=== PATIENT | male | born 1950 | race Caucasian/White ===

== ENCOUNTER 2023-04-14 06:12 | Day surgery (SDC) | payer MEDICARE, OTHER, SELFPAY ==
[2023-04-14 06:25] VITALS: BP 137/74
[2023-04-14 06:30] VITALS: BMI 33.1
[2023-04-14 06:39] VITALS: BP 137/74
[2023-04-14 07:02] LABS: Glucose - Point of Care 130 mg/dl (70-99)
[2023-04-14 09:05] LABS: ACT-LR - POC 342 Seconds (116-155)
[2023-04-14 09:37] LABS: ACT-LR - POC 211 Seconds (116-155)
[2023-04-14 09:48] LABS: ACT-LR - POC 195 Seconds (116-155)
[2023-04-14 10:29] VITALS: BP 145/99
[2023-04-14 11:53] LABS: Glucose - Point of Care 140 mg/dl (70-99)
--- NOTE | 2023-04-14 12:22 | ITS.CL.ANGIO ---
Licensed Final Expense Agents - Angioplasty
Angioplasty
Procedure Report:
PERIPHERAL ARTERIAL CATHETERIZATION
Date of Procedure: April 14, 2023
Procedures performed:
1: Percutaneous intervention of the left subclavian artery with shockwave lithotripsy angioplasty followed by placement of a 8 x 29 mm Viabahn VBX balloon expandable bioprosthesis postdilated with a 10 mm diameter balloon
Primary Care Physician: Dr. Krishna Major
Referring Physician: Myself
INDICATION: The patient is a 72-year-old man with a past medical history significant for coronary artery disease status post CABG and bioprosthetic aortic valve replacement at [facility] in 2018, hypertension, prior lacunar infarcts in the
right frontal lobe, hyperlipidemia, ibd-uqtzvcd-vlljwvezj diabetes mellitus, and GERD who presents with progressive angina.� He initially reported 3 to 4 weeks of progressive exertional chest pain which resolved with rest.� On more direct
questioning he thinks he has had some degree of symptoms for a couple months that have become more noticeable over the last few weeks.� He went to the [facility] emergency room and ruled in for a very low level non-STEMI at the end of
January.� Urgent cath was done at that time which showed a diagonal branch acute coronary syndrome which was successfully treated with drug-eluting stenting. Cath at that time showed a bulky calcific critical stenosis of the left subclavian
jeopardizing the only patent DUGGAN graft to the LAD. The patient has continued to experience exertional angina at relatively low level. He was seen in consultation with vascular surgeon Dr. Carvajal and consideration for possible carotid to subclavian
bypass was entertained given the calcific nature of the disease. After long conversation with he and his of the pros and cons of each technique, he is elected to proceed today with an attempt at endovascular intervention of the severe
subclavian stenosis contributing to crescendo angina jeopardizing the DUGGAN graft.
HEMODYNAMIC FINDINGS (mmHg):
Ao(s/d,m): 158/66, 104
ANGIOGRAPHIC FINDINGS:
1: Selective angiography of the left subclavian was performed in QATARI and CARVAJAL projections.� This revealed a bulky eccentric calcified plaque in the ostium and proximal portion of the large caliber subclavian.� A pullback gradient using a 4 Bahraini JR4
catheter revealed a 60 mm peak to peak gradient was noted on the prior diagnostic procedure.
PROCEDURE DETAILS: The patient was pretreated with aspirin and Plavix. Using ultrasound guidance a 8 Bahraini sheath was placed in the right common femoral artery. A 8 Bahraini 90 cm Shuttle Sheath was advanced over a J-wire to the aortic arch.
Unfractionated heparin was given. A 5 Bahraini JR4 diagnostic catheter was used to facilitate delivery of a V18 wire through the subtotal occlusion and into the left subclavian. Due to difficulty advancing the V18 wire, I elected to advance a BMW
coronary wire also across the occlusion and predilated the stenosis with a 3.0 followed by a 4.0 balloon. I was able to use a 0.018 inch compatible 4.0 balloon to exchange the coronary wire for the initial V18 wire and get better distal support.
Next, a 9 x 30 mm Shockwave lithotripsy balloon was advanced to the lesion. Low-pressure inflation at 1.5-2 atmospheres resulted in the patient reporting some chest discomfort. I inflated the balloon on 6 separate occasions and delivered 30 pulses
of intravascular lithotripsy a total of 6 times. This is a total of 180 pulses delivered. This resulted in complete profiling of the 9 mm balloon at only 2 montrell. I did not feel comfortable going to a higher pressure given his symptoms and felt
this balloon lithotripsy result was more than adequate. Next, a 8 x 29 mm Viabahn covered stent graft was deployed at the lesion at 10 montrell. The stent graft balloon was used to flare the proximal ostial area at 12 montrell. Next a 10 x 2 cm Advance
balloon was used to post dilate the distal stent graft at 2 montrell low-pressure and 6 montrell in the mid and ostial portion with compete profiling of the balloon. Follow-up angiography in QATARI and CARVAJAL projections revealed an outstanding angiographic result
with perfect stent placement at the ostium.
FINAL RESULT: 0% in-stent residual stenosis with an excellent angiographic result and normal flow in all distal vessels.
Fluoroscopy Time (min): 30
Radiation Dose (mGy): 246
DAP (Gy.cm2): 36
Closure device: 8 Bahraini Angio-Seal right common femoral artery
Complications: None
ASSESSMENT:
1: Successful percutaneous intervention of left subclavian artery with placement of a covered stent graft as described above.
CONCLUSIONS and RECOMMENDATIONS:
1: Routine post peripheral intervention monitoring and medical therapy. Continue current DAPT with aspirin and Plavix as well as statin, Zetia, and metoprolol with recent non-STEMI.
2: Once his groin is healed he will be enrolled in cardiac rehab and have close clinical follow-up with myself.
Guillermo Ramon M.D.
Copy to: Dr. Krishna Major
--- NOTE | 2023-04-14 12:29 | CM ---
Reviewed chart. Met with Mr. Nieto to review discharge plans. He states prior to admission he resides with his spouse in a one story home with one step to enter. He states prior to admission he was independent with ambulation and adls. He
states he does not have any DME in the home. He states he has a prescription plan and uses [facility]. The discharge plan is to return home with his spouse when medically stable.
[2023-04-14 13:12] VITALS: BP 124/62
[2023-04-14] MEDS: LIPITOR 80 MG PO (17:09)
[2023-04-14 17:11] LABS: Glucose - Point of Care 96 mg/dl (70-99)
[2023-04-14] MEDS: LOPRESSOR 12.5 MG PO (20:30)
[2023-04-14 20:38] VITALS: BP 136/69
[2023-04-14 21:45] LABS: Glucose - Point of Care 154 mg/dl (70-99)
[2023-04-14 23:11] VITALS: BP 94/51
[2023-04-15 01:04] VITALS: BP 120/65
[2023-04-15 03:50] VITALS: BP 138/75
[2023-04-15 04:16] LABS: Hemoglobin 13.6 g/dL (13.0-18.0); Mean Corpuscular Hgb 32.2 pg (27.0-31.0); Mean Corpuscular Volume 94.8 fL (80.0-94.0); Mean Platelet Volume 9.5 fL (7.4-10.4); Platelet Count 149 10^3/uL (130-400); Red Blood Cell Count 4.22 10^6/uL (4.70-6.10); Red Cell Dist. Width 13.2 % (11.5-14.5); White Blood Cell Count 6.7 10^3/uL (4.8-10.8)
[2023-04-15 04:36] LABS: Blood Urea Nitrogen 18 mg/dl (9-20); Calcium 9.1 mg/dl (8.4-10.2); Carbon Dioxide 25 mmol/L (22-30); Chloride 104 mmol/L (98-107); Estimated Creatinine Clearance 79 ml/min; Glucose 137 mg/dl (70-99); HDL Cholesterol 41 mg/dl; LDL Cholesterol, Calculated 25 mg/dl; Potassium 4.3 mmol/L (3.5-5.1); Sodium 137 mmol/L (135-145); Total Cholesterol 105 mg/dl (50-199); Triglyceride 199 mg/dl (10-149); Very Low Density Lipoprotein 39 mg/dl (0-30); eGFR > 60.00
[2023-04-15 07:04] VITALS: BP 128/63
[2023-04-15 07:45] LABS: Glucose - Point of Care 149 mg/dl (70-99)
--- NOTE | 2023-04-15 07:57 | W.PN.CARDCBS ---
Today's Communication / Plan
-
post lithotripsy angioplasty with stent to left subclavian arter
DAPT
stable for d/c home today
Impression / Plan
-
Primary Care Physician: Dr. Krishna Major
Referring Physician: Dr. Chico Ramon
IMPRESSION:
Critical Left Subclavian stenosis, incidental finding on cath 02/11/23
post Lithotripsy angioplasty with stent placement to left subclavian artery 04/14/23
NSTEMI with Diagonal PCI, 02/11/23
CAD, prior CABG x3 DUGGAN-LAD, VG-OM-PDA (06/14/2017)
, s/p AVR 25mm bovine (06/14/2017)
HTN
HLD
MATILDE
NIDDM
GERD
Fatty liver
TIA/CVA lacunar
Alcohol use disorder
Former smoker
h/o TKR
04/14/23 Procedure: Percutaneous intervention of the left subclavian artery with shockwave lithotripsy angioplasty followed by placement of a 8 x 29 mm Viabahn VBX balloon expandable bioprosthesis postdilated with a 10 mm diameter balloon
[facility] 02/11- Successful Diagoanl branch PCI w/YANIRA
critical ostial/proximal calcific eccentric plaque in left SC w/60mm peak to peak gradient across the lesion
interval occlusion of SVG-distal OM and RPDA, supplied by collaterals from prox LAD septal cascade.
Plan:
post LCA stent, feels good
no cp, groin stable
continue DAPT ASA/Plavix
HTN - continue metoprolol tartrate 12.5mg bid
Hyperlipidemia LDL 25 continue atorvastatin 80mg, and ezetimibe 10mg
DM2 - continue Jardiance 25mg, A1c pending previously 6.4 01/2023
Activity restrictions reviewed
groin check on Wednesday
f/u Dr. Ramon in 2-4 weeks
home today
Progress Note - Boom Tender
Subjective
Date of Service: April 15, 2023
no cp, sob
Objective
Labs:
04/15/23 03:54
04/15/23 03:54
Labs
Hgb 13.6 g/dL (13.0-18.0) 04/15/23 03:54
Hct 40.0 % (39.0-52.0) 04/15/23 03:54
Plt Count 149 10^3/uL (130-400) 04/15/23 03:54
Sodium 137 mmol/L (135-145) 04/15/23 03:54
Potassium 4.3 mmol/L (3.5-5.1) 04/15/23 03:54
BUN 18 mg/dl (9-20) 04/15/23 03:54
Creatinine 0.9 mg/dL (0.7-1.3) 04/15/23 03:54
Glucose 137 mg/dl (70-99) H 04/15/23 03:54
Vital Signs and I&O:
Vital Signs
Temp Pulse Resp BP Pulse Ox
97.9 F 80 20 138/75 93
04/15/23 03:00 04/15/23 03:50 04/15/23 03:00 04/15/23 03:50 04/15/23 03:00
Vital Signs
Temp Pulse Resp BP Pulse Ox
97.9 F 80 20 138/75 93
04/15/23 03:00 04/15/23 03:50 04/15/23 03:00 04/15/23 03:50 04/15/23 03:00
Physical Exam
Physical Exam
NAD, AOx3
S1, S2, RRR
CTAB, non labored
SNTND bsx4
R fem site c/d/i no HT, soft
[2023-04-15] MEDS: LOPRESSOR 12.5 MG PO (08:26)
[2023-04-15] MEDS: ZETIA 10 MG PO (08:27)
[2023-04-15] MEDS: JARDIANCE 25 MG PO (08:27)
[2023-04-15] MEDS: ASPIR LOW (ENTERIC COATED) 81 MG PO (08:27)
[2023-04-15] MEDS: PROTONIX 40 MG PO (08:27)
[2023-04-15] MEDS: PLAVIX 75 MG PO (08:29)
--- NOTE | 2023-04-15 10:00 | PTCARENOTE ---
Assumed care of pt from night RN. Pt received awake and alert, Ox3. VSS, CM shows NSR 70's, POX95% on RA. Right groin dsg remains CDI, site soft and non tender, good pulses throughout extremity. Pt denies any pain or discomfort at this time.
Will continue to monitor closely.
[2023-04-15 11:09] VITALS: BP 91/66
[2023-04-15 11:12] VITALS: BP 120/71
[2023-04-15 11:22] LABS: Glucose - Point of Care 102 mg/dl (70-99)
--- NOTE | 2023-04-15 12:39 | W.PN.CARDCBS ---
Today's Communication / Plan
-
Doing well status post left subclavian stent. Continue aspirin and Plavix.
Okay for discharge and follow-up with Dr. Ramon.
Impression / Plan
-
Primary Care Physician: Dr. Krishna Major
Referring Physician: Dr. Chico Ramon
IMPRESSION:
Critical Left Subclavian stenosis, incidental finding on cath 02/11/23
post Lithotripsy angioplasty with stent placement to left subclavian artery 04/14/23
NSTEMI with Diagonal PCI, 02/11/23
CAD, prior CABG x3 DUGGAN-LAD, VG-OM-PDA (06/14/2017)
, s/p AVR 25mm bovine (06/14/2017)
HTN
HLD
MATILDE
NIDDM
GERD
Fatty liver
TIA/CVA lacunar
Alcohol use disorder
Former smoker
h/o TKR
04/14/23 Procedure: Percutaneous intervention of the left subclavian artery with shockwave lithotripsy angioplasty followed by placement of a 8 x 29 mm Viabahn VBX balloon expandable bioprosthesis postdilated with a 10 mm diameter balloon
[facility] 02/11- Successful Diagoanl branch PCI w/YANIRA
critical ostial/proximal calcific eccentric plaque in left SC w/60mm peak to peak gradient across the lesion
interval occlusion of SVG-distal OM and RPDA, supplied by collaterals from prox LAD septal cascade.
Plan:
post LCA stent, feels good
no cp, groin stable
continue DAPT ASA/Plavix
HTN - continue metoprolol tartrate 12.5mg bid
Hyperlipidemia LDL 25 continue atorvastatin 80mg, and ezetimibe 10mg
DM2 - continue Jardiance 25mg, A1c pending previously 6.4 01/2023
Activity restrictions reviewed
groin stable. Okay for discharge.
Progress Note - University Archivist
Subjective
Date of Service: April 15, 2023
Feels well with no chest pains or shortness of breath.
Objective
Labs:
04/15/23 03:54
04/15/23 03:54
Labs
Hgb 13.6 g/dL (13.0-18.0) 04/15/23 03:54
Hct 40.0 % (39.0-52.0) 04/15/23 03:54
Plt Count 149 10^3/uL (130-400) 04/15/23 03:54
Sodium 137 mmol/L (135-145) 04/15/23 03:54
Potassium 4.3 mmol/L (3.5-5.1) 04/15/23 03:54
BUN 18 mg/dl (9-20) 04/15/23 03:54
Creatinine 0.9 mg/dL (0.7-1.3) 04/15/23 03:54
Glucose 137 mg/dl (70-99) H 04/15/23 03:54
Vital Signs and I&O:
Vital Signs
Temp Pulse Resp BP Pulse Ox
98.2 F 71 16 120/71 95
04/15/23 07:00 04/15/23 11:12 04/15/23 07:00 04/15/23 11:12 04/15/23 09:51
Vital Signs
Temp Pulse Resp BP Pulse Ox
98.2 F 71 16 120/71 95
04/15/23 07:00 04/15/23 11:12 04/15/23 07:00 04/15/23 11:12 04/15/23 09:51
Physical Exam
Physical Exam
GEN: No distress, awake, Ox3
HEENT: supple, anicteric, mmm
LUNGS: CTA, no wheezes/rales
CV: Reg, S1/S2, 1/6 syst LSB, no gallop
ABD: soft, BS+, NT/ND
EXT: R groin stable, no hematoma
NEURO: Gross non-focal
SKIN: No rash
--- NOTE | 2023-04-15 12:53 | PTCARENOTE ---
All D/C info reviewed with pt, all questions answered. Pt D/C'd home with spouse.
--- NOTE | 2023-04-15 14:01 | W.DS.TRANS ---
DC Summary - Natural Remedy Consultant
-
Discharge Instructions:
Discharge Diagnosis/Procedures Atherectomy, Angioplasty and stent to Left
Subclavian artery
Diet Low Cholesterol,Diabetic, Carb Controlled
Driving Restrictions No driving for 24 hours
Instructions:
Stand-Alone Forms: DC Instructions- Cath/EP Lab
Changes to Home Medications: No
Discharge Medications:
DC Medications w/original date entered in [facility]
aspirin 81 mg tablet,delayed release 81 mg PO DAILY Blood Clot Prevention/Tx 05/05/17
blood sugar diagnostic (Blood Glucose Test strips) #150 strips 06/18/17
lancets 30 gauge #200 ea 06/18/17
atorvastatin 80 mg tablet 80 mg PO QPM High Cholesterol 02/11/23
empagliflozin 25 mg tablet (Jardiance) 25 mg PO DAILY Diabetes 02/11/23
ezetimibe 10 mg tablet 10 mg PO DAILY High Cholesterol 02/11/23
metoprolol tartrate 25 mg tablet 12.5 mg PO BID Blood Pressure 02/11/23
nitroglycerin 0.4 mg sublingual tablet 0.4 mg sublingual ONCE CHEST PAIN 02/11/23
clopidogrel 75 mg tablet 75 mg PO DAILY #90 tabs 02/12/23
pantoprazole 40 mg tablet,delayed release 40 mg PO DAILY #90 tabs 02/12/23
Home Medication Changes
Pending Results: No
== END 2023-04-15 12:54 | disposition home or self-care (01) ==
LOC: CATH 06:12
PROVIDERS: Nurse Practitioner; ATTENDING PHYSICIAN Internal Medicine Interventional Cardiology; FAMILY PHYSICIAN Family Medicine
DX: I77.1 Stricture of artery (principal); Z86.73 Personal history of transient ischemic attack (TIA), and cerebral infarction without residual deficits; I25.2 Old myocardial infarction; E78.5 Hyperlipidemia, unspecified; K21.9 Gastro-esophageal reflux disease without esophagitis; I10 Essential (primary) hypertension; Z95.3 Presence of xenogenic heart valve; I25.110 Atherosclerotic heart disease of native coronary artery with unstable angina pectoris; Z95.1 Presence of aortocoronary bypass graft; Z79.02 Long term (current) use of antithrombotics/antiplatelets; E11.9 Type 2 diabetes mellitus without complications; Z79.84 Long term (current) use of oral hypoglycemic drugs; Z95.5 Presence of coronary angioplasty implant and graft; K76.0 Fatty (change of) liver, not elsewhere classified; Z87.891 Personal history of nicotine dependence; Z87.898 Personal history of other specified conditions; F10.20 Alcohol dependence, uncomplicated; Z96.659 Presence of unspecified artificial knee joint; I65.29 Occlusion and stenosis of unspecified carotid artery; I35.0 Nonrheumatic aortic (valve) stenosis; Z79.82 Long term (current) use of aspirin; Z79.4 Long term (current) use of insulin
CPT/HCPCS: 37236; 36215; C1725; C1769; C1894; 80048; 80061; 82962; 83036; 85027; 85347; 93005; C1760; C1874; C9765; Q9967

== ENCOUNTER → 2024-10-05 06:33 | Outpatient (REF) | payer MEDICARE, OTHER, SELFPAY | LOC: RAD 06:33 | PROVIDERS: ATTENDING PHYSICIAN Surgery Vascular Surgery; FAMILY PHYSICIAN Family Medicine | DX: I73.9 Peripheral vascular disease, unspecified (principal); I65.21 Occlusion and stenosis of right carotid artery | CPT/HCPCS: 71275; 93880; 93923; 93925; Q9967 ==

== ENCOUNTER 2024-10-26 06:17 | Inpatient (IN) | payer MEDICARE, OTHER, SELFPAY ==
[2024-10-20 10:06] LABS: Hematocrit 41.9 % (39.0-52.0); Hemoglobin 12.9 g/dL (13.0-18.0); Mean Corp Hgb Conc. 30.8 g/dL (33.0-37.0); Mean Corpuscular Volume 79.1 fL (80.0-94.0); Nucleated Red Blood Cells % 0 % (-); Platelet Count 204 10^3/uL (130-400); Red Cell Dist. Width 15.9 % (11.5-14.5)
[2024-10-20 10:17] VITALS: BMI 34.4
[2024-10-20 10:24] LABS: INR 0.98; PT 13.3 Sec (11.4-14.6)
[2024-10-20 10:25] LABS: APTT 28.6 Sec (23.4-35.0)
[2024-10-20 10:47] LABS: Blood Urea Nitrogen 13 mg/dl (9-20); Calcium 9.3 mg/dl (8.4-10.2); Carbon Dioxide 28 mmol/L (22-30); Chloride 103 mmol/L (98-107); Estimated Creatinine Clearance 60 ml/min; Glucose 180 mg/dl (70-99); Potassium 4.7 mmol/L (3.5-5.1); Sodium 138 mmol/L (135-145); eGFR > 60.00
[2024-10-26] VITALS (16 sets, daily range): BP systolic 94–157; BP diastolic 56–94; BMI 34.3
[2024-10-26] MEDS: NSS 500 IV (07:05)
[2024-10-26] MEDS: BACTROBAN NASAL 1 GRAM NASAL (07:09)
[2024-10-26] MEDS: PERIDEX 0.12% ORAL RINSE 15 ML PO (07:10)
--- NOTE | 2024-10-26 07:10 | W.SUR.PREOP ---
Pre-Operative Surgical Note
-
I have examined this patient prior to the performance of the scheduled procedure.
The patient's condition is unchanged from the time of the current History and
Physical and the patient is able to undergo the scheduled procedure.
[2024-10-26 07:13] LABS: Glucose - Point of Care 121 mg/dl (70-99)
[2024-10-26 09:39] LABS: Glucose - Point of Care 177 mg/dl (70-99)
--- NOTE | 2024-10-26 10:27 | W.SUR.POST ---
Surgical Immediate Post Op
Note
Pre Op Diagnosis: PAD
Post Op Diagnosis: PAD
Procedure Performed: Right axillary bifemoral bypass with ringed Propaten graft
Primary Surgeon: Darren
Secondary Surgeons: Claude ALBRECHT
Anesthesia: General
Estimated Blood Loss: 75
Fluids: See anesthesia flow sheet
Drains/Shunts: none
Specimens/Cultures: none
Doppler/Duplex/Angio (Y/N): Y
Complications: none
Operative Findings: PT doppler on the right, and DP doppler on the left
--- NOTE | 2024-10-26 12:01 | CON.INTV ---
Consultation
Consultation Request
Date/Time Consultation Requested: 10/26/2024-1 PM
Date/Time Consultation Performed: 10/26/2024-1:15 PM
Requesting Provider: Vascular surgery
Performing Provider: Dr. Lugo
Reason for Consultation: Postop critical care management
Medical History
-
Chief Complaint: PAD
History of Present Illness:
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
Past Medical History
Past Medical History: None (Hypertension. Hyperlipidemia. CAD/stent/CABG/AVR 2018. Aortic stenosis. Obesity. Diabetes. Fatty liver. Chronic back pain. Allergies. GERD. History of shingles. Cataract. Bilateral knee replacement.
Appendectomy.)
Social History
Tobacco: Former Smoker (3 to 4 packs/day started 1965 quit 1986)
Personal:
Living: With Family
Occupational Exposures: No known asbestos exposure
Environmental Exposures: No known tuberculosis exposure
Family History
Family History: Reviewed & Not Pertinent (Father-CHF)
Allergies / Home Medications
Allergies
Allergy/AdvReac Type Severity Reaction Status Date / Time
codeine Allergy Nausea / Verified 10/26/24 07:21
Vomiting
grapefruit Allergy lips turn Verified 10/26/24 07:21
red,
swelling,
throat
irritation
Home Medications
�Medication �Instructions �Recorded �Confirmed �Last Taken �Type
aspirin 81 mg tablet,delayed 81 mg PO DAILY Blood Clot 05/05/17 10/26/24 10/26/24 04:00 History
release Prevention/Tx
blood sugar diagnostic (Blood #150 strips 06/18/17 10/26/24 Unknown Rx
Glucose Test strips)
lancets 30 gauge #200 ea 06/18/17 10/26/24 Unknown Rx
atorvastatin 80 mg tablet 80 mg PO QPM High Cholesterol 02/11/23 10/26/24 10/25/24 18:00 History
empagliflozin 25 mg tablet 25 mg PO DAILY Diabetes 02/11/23 10/26/24 10/23/24 09:00 History
(Jardiance)
metoprolol tartrate 25 mg tablet 12.5 mg PO BID Blood Pressure 02/11/23 10/26/24 10/26/24 04:00 History
nitroglycerin 0.4 mg sublingual 0.4 mg sublingual ONCE CHEST PAIN 02/11/23 10/26/24 Unknown History
tablet
pantoprazole 40 mg tablet,delayed 40 mg PO DAILY #90 tabs 02/12/23 10/26/24 10/25/24 18:00 Rx
release
cilostazol 50 mg tablet 50 mg PO BID 10/17/24 10/26/24 10/26/24 04:00 History
ibuprofen 200 mg tablet (Advil) 200 mg PO Q6H PRN pain 10/17/24 10/26/24 3 Months Ago History
~07/26/24
ezetimibe 10 mg tablet 10 mg PO DAILY 10/26/24 10/26/24 10/25/24 18:00 History
Review of Systems
-
Unable to Obtain full review of systems at this time due to: Other ( per HPI)
Vitals / Labs / Diagnostic Testing
Vital Signs
Temp Pulse Resp BP Pulse Ox
98.3 F 73 20 156/80 98
10/26/24 06:26 10/26/24 07:15 10/26/24 07:15 10/26/24 07:10 10/26/24 07:15
Diagnostic Testing:
Physical Exam
-
Exam:
Well-nourished and well-developed in no apparent distress
HEENT-atraumatic, normocephalic
Neck-supple, no JVD, no bruit
Heart-regular rate and rhythm-no murmurs, rubs or gallops
Chest-clear to auscultation, no wheezes, crackles
Back-no tenderness
Abdomen-soft, nontender, nondistended, no hepatosplenomegaly
Extremities-no cyanosis, clubbing, edema and good peripheral pulses
Integument-intact, no rashes, lesions or ecchymosis
Neurology-alert and oriented, nonfocal motor and sensory exam
Assessment
-
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
Peripheral artery disease
Status post right axillary aortobifem bypass with ringed propatent graft-Dr. Banks-10/26/2024
Hyperglycemia
Conditions present prior to admission:
Hypertension.
Hyperlipidemia.
CAD/stent/CABG/AVR 2017.
Aortic stenosis.
Obesity-BMI 34
Diabetes.
Fatty liver.
Chronic back pain.
Allergies.
GERD.
History of shingles.
Cataract. Bilateral knee replacement. Appendectomy.
Plan
Postoperative surgical intensive care unit monitoring
Supplemental oxygen as needed
Incentive spirometry
Aspiration precautions
Neuro and vascular checks per protocol
Monitor blood pressure/perfusion pressures and pulses closely
Vascular surgery following-correspondence and operative notes reviewed
DVT prophylaxis
Early nutrition
Early mobilization
Consider outpatient sleep apnea workup-has some snoring when sleeping on his back and no significant daytime somnolence
Critical care statement: A total of 55 minutes of critical care time was provided for this patient today. This includes management of unstable vital signs, evaluation of the patient at bedside, reviewing the patient's pertinent medical records
including radiographs, microbiology, laboratory evaluations, and discussion with primary team, consultants, pharmacy, nutrition, physical therapy, case management, charge nurse, critical care nursing, and respiratory therapy.
Diagnostic data:
Chest x-ray 06/18/17-small left pleural effusion
Chest x-ray 10/20/2024-NAD
CT angiogram 10/05/2024-stent within the left subclavian artery without significant stenosis, severe coronary artery calcifications no pulmonary emboli, lungs are clear without evidence of emphysema pneumothorax, pleural effusions
Cardiac catheterization 04/14/2023-successful percutaneous intervention of left subclavian artery with placement of covered stent graft
Data Reviewed
-
EKG: Report reviewed by me
Radiology: Report reviewed by me
CT Scan: Report reviewed by me
Medical Tests (Nuc Med, Echo etc): Report reviewed by me
Labs: Labs reviewed by me
Old Records: Reviewed
Critical Care Time (in minutes): 55
[2024-10-26 12:21] LABS: Glucose - Point of Care 181 mg/dl (70-99)
[2024-10-26 12:34] LABS: Glucose - Point of Care 214 mg/dl (70-99)
[2024-10-26] MEDS: DILAUDID 0.5 MG IV (12:39)
[2024-10-26] MEDS: NOVOLOG vial 1 UNITS SC (12:41)
[2024-10-26 12:52] LABS: Hematocrit 36.0 % (39.0-52.0); Hemoglobin 11.0 g/dL (13.0-18.0); Mean Corp Hgb Conc. 30.6 g/dL (33.0-37.0); Mean Corpuscular Volume 78.8 fL (80.0-94.0); Platelet Count 163 10^3/uL (130-400); Red Cell Dist. Width 15.8 % (11.5-14.5)
[2024-10-26 12:53] LABS: APTT 30.0 Sec (23.4-35.0); Blood Urea Nitrogen 10 mg/dl (9-20); Calcium 7.9 mg/dl (8.4-10.2); Carbon Dioxide 26 mmol/L (22-30); Chloride 106 mmol/L (98-107); Estimated Creatinine Clearance 80 ml/min; Glucose 217 mg/dl (70-99); INR 1.05; PT 14.2 Sec (11.4-14.6); Potassium 4.4 mmol/L (3.5-5.1); Sodium 136 mmol/L (135-145); eGFR > 60.00
[2024-10-26] MEDS: DILAUDID 0.25 MG IV (12:54)
--- NOTE | 2024-10-26 13:09 | OR.RPT ---
Operative Report
Operative Report
PROCEDURE DATE: 10/26/2024
Preoperative diagnosis: Debilitating bilateral lower extremity claudication with multilevel severe peripheral arterial disease including severe aorta/iliac artery disease.
Postoperative diagnosis: Same
Procedure: Right axillary to bifemoral artery bypass with Sayner Propaten 8 mm ringed axillary bifemoral graft.
Surgeon: Darren
Farm Specialist: HOOD Arce, required for all aspects of procedure including assistance with traction/countertraction, following a suture line, assistance with closure.
Complications: None
Anesthesia: General
Indications for procedure:
Debilitating claudication. He felt very limited in terms of his ability to exercise or be active at all. I had recommended strongly exercise therapy due to his severe multilevel disease. However he wished for something more to be done as he felt
quite dejected and unable to perform routine activities. Given his cardiac risk factors, and given visceral aortic bulky plaque, we discussed extensively revascularization strategies. We decided on axillary bifemoral bypass. He understood
inferior patency relative to inline aortic reconstruction, however he was not a candidate based on severe risk for aortic reconstruction. Risk/benefits/alternatives of axillary bifemoral bypass were discussed. Patient understood and wished to
proceed.
Description of procedure:
Patient was identified brought to the operating room placed on the table in supine position. After the adequate administration of anesthesia he was prepped and draped in the standard surgical fashion. A standard preoperative timeout was undertaken
and everybody was in agreement the plan. A transverse incision was made about 1 fingerbreadth inferior to the clavicle at its mid to distal third. This is carried through skin subcutaneous tissue with the electrocautery. I then divided through
the pectoralis major muscle fibers and then split the fibers so as to create a space. Self-retaining retractor was then placed. The we then used electrocautery to dissect through the clavipectoral fascia. The cephalic vein was identified and
ligated between silk ties and divided. There was a host of other small venous branches that had to be meticulously ligated or clipped. At this point I was able to palpate the pulsation of the artery. Therefore just deep to the vein identified the
axillary artery. It was carefully dissected away from surrounding structures and great care to avoid any injury to structures. I passed Vesseloops around approximately distally. The distal extent that I controlled was just as it dove under the
pectoralis minor muscle belly.
At this point I made a oblique/transverse incision in the right groin (given absence of significant femoral bifurcation disease, I felt an oblique/transverse incision would carry a lower infectious risk as I do not require a longitudinal incision
for extensive endarterectomy and or such). This is carried through skin subcutaneous tissue with the electrocautery. I identified the inguinal ligament and carefully dissected the common femoral artery as it emerged from underneath the inguinal
ligament. I then continued dissection to the femoral bifurcation. The SFA and proximal profunda and profunda branch were all controlled with Vesseloops. The origin of the profunda and the SFAs were noted to be soft. There was pulsatility in the
vessels. The common femoral artery was dissected proximally in the field and a vessel loop passed around it here.
Next I made a similar oblique/transverse incision in the left groin as well. This was carried through the skin subcutaneous tissue with electrocautery. I identified the inguinal ligament. I carefully dissected the common femoral artery as it
emerged from underneath the inguinal ligament. I then continue dissection to the femoral bifurcation. The SFA and proximal profunda and profunda branch were all controlled with Vesseloops. The origin of the profunda was noted to be soft. The
origin of the SFA had some mild plaque to palpation, but based on CT scan imaging did not have a significant stenosis.
At this point I used a Rashel tunneler to create a subcutaneous tunnel between the axillary artery incision site and the right groin incision site. While it was primarily a subcutaneous tunnel, the tunnel went deep to the pectoralis minor before
tunneling subcutaneously on the lateral chest wall. I did this intentionally. I now created a subcutaneous tunnel between the 2 groin incision sites. I initially tried to stay directly on the abdominal wall starting from the left groin. However
it seemed his abdominal wall tissues and muscles imbricated over and flopped somewhat into the groin and I was concerned about getting into the retroperitoneum. Therefore I stayed in the more subcutaneous plane. Once I created these tunnels, I
passed a 8 mm ringed Sayner Propaten axillary bifemoral graft through the tunnels taking care to avoid any kinking or twisting, and orienting it in the standard fashion with the long segment up at the axillary site, and the shorter of the femoral
segment in the right groin and the cross femoral segment in the left groin. Once the graft was successfully tunnel, I gave the patient 8000 symmetries heparin. Once this had circulated for 3 minutes, I clamped the proximal axillary artery and
tightened a double loop vessel loop distally on the axillary artery. I made an arteriotomy with an 11 blade and extended using a Mendez scissor. The lumen was nicely patent. I then trimmed the graft, removed excess rings, and beveled it. I then
sewed an end to side anastomosis between the graft and the axillary artery using a running Sayner CV 6 suture. I completed and tied down the suture line. I then released flow in the [place] artery after placing a clamp on the graft. I briefly
flushed out the graft. Hemostasis was noted at the suture line. I then packed the site.
Of note I had pulled out any redundancy in the graft prior to perform the anastomosis. The graft laid nicely on the axillary artery following it sort of parallel on top as it tunneled underneath the pectoralis minor muscle (to avoid any acute angle
that could result in disruption of the graft with movement).
Now I turned my attention to the right groin. The common femoral/SFA/profunda were all clamped. Arteriotomy was made in the common femoral artery that was extended over the origin of the profunda onto the SFA. I then trimmed and then removed the
excess rings on the graft. I then beveled it and sewed to end to side anastomosis using a running Sayner CV 6 suture. Prior to completing and tying down my suture line I backbled the [place] arteries and flushed out the graft. I then remove clamps
on the arteries and remove my graft clamp to the right femoral limb. Excellent pulsatile flow was noted in the femoral artery/bifurcation.
At this point I turned my attention to the left groin. The common femoral/SFA/profunda were all similarly clamped. An arteriotomy was made with an 11 blade on the SFA that was extended proximally with a Mendez scissor to the very distal common
femoral artery/proximal SFA (just overlying the origin of the profunda). There was a little bit of thickening/plaque in the proximal SFA wall but no significant stenosis. Therefore I did not need to perform any endarterectomy here. I now trimmed
and deringed and beveled the graft and sewed a zhong anastomosis to the proximal SFA/distal common femoral artery using a running Sayner CV 6 suture. Prior to completing and tying down my suture line I backbled the [place] arteries and flushed out the
graft. I irrigated heparinized saline. I then completed and tied down my suture line. I now released clamps and the graft clamp. There is excellent pulsatile flow now in the femoral arteries/bifurcation.
At this point I was very satisfied. All incision sites were copiously irrigated. Protamine was given reverse the heparin. Hemostasis was fully achieved and confirmed. The groin incision sites were closed in layers of 2-0 Vicryl (2 layers)
followed by running 3-0 Vicryl and 4-0 Monocryl subcuticular stitch. The axillary incision site was closed with 2-0 Vicryl to reapproximate the pectoralis major muscle followed by running 3-0 Vicryl deep dermal layer, followed by 4-0 Monocryl
subcuticular running stitch. Dermabond was applied to all incision sites. Dressings were applied. The patient tolerated the procedure well. All sponge, needle, instrument counts were correct at the end of the case.
[2024-10-26] MEDS: NSS 1000 IV (13:54)
[2024-10-26 14:02] LABS: Glucose - Point of Care 210 mg/dl (70-99)
[2024-10-26] MEDS: NOVOLOG FLEXPEN-LOW RESISTANCE SC (14:54)
[2024-10-26] MEDS: PROTONIX PO (14:55)
--- NOTE | 2024-10-26 16:05 | PTCARENOTE ---
Pt alarmed for vtach on tele, had approx 32 beat run NSVT, asymptomatic. Drs. Banks/HOOD Weber and Brittney notified, orders for ECG, labs, 2g Ca Gluconate, and cardiology consult rec'd and carried out.
[2024-10-26 16:28] LABS: Glucose - Point of Care 165 mg/dl (70-99)
[2024-10-26] MEDS: CALCIUM GLUCONATE 100 IV (16:37)
--- NOTE | 2024-10-26 16:56 | CON.CAR ---
Addendum entered and electronically signed by Chavez Sagastume MD 10/26/24 17:59:
I saw and examined the patient.
The Family Intervention Specialist's note was reviewed and I agree with the note.
Comment: Briefly, 74-year-old man past medical history of coronary artery disease status post CABG w/ bio AVR (2017) and subsequent PCI (2022) who underwent successful right axillary to bifemoral bypass procedure with vascular surgery earlier today.
Postop patient was noted to have run of nonsustained VT on telemetry for which cardiology is consulted.
In speaking with the patient tells me he was asymptomatic during the time of this event, was not experiencing of palpitations, chest discomfort or lightheadedness/dizziness.
Would recommend continued telemetry monitoring
Replete K greater than 4, Mg greater than 2
Resume home beta-elmer and consider uptitrating as needed
In the event that he has continued ventricular ectopy we can consider antiarrhythmic drug, but would start by adding back metoprolol
Reportedly had an echocardiogram preoperatively, we will request records from his primary collection advisor Dr. Ramon
Discussed with patient's at bedside
Original Note:
Consultation
Consultation Request
Date/Time Consultation Requested: 10/26/2024
Date/Time Consultation Performed: 10/26/2024
Requesting Provider: Dr. Banks
Performing Provider: Dr. Sagastume
Reason for Consultation: NSVT
Medical History
-
Chief Complaint: claudication
History of Present Illness:
Patient presented to the hospital for elective right axillary to bifemoral bypass procedure with vascular surgery and cardiology is now consulted to see patient for 32-beat run NSVT postop, of which patient was asymptomatic. Patient has been
following with vascular surgery in the office for symptoms of claudication and patient was scheduled for right axillary to bifemoral artery bypass that was performed today. Patient has a history of CAD s/p CABG in 2018 at time of his tissue AVR and
then he had NSTEMI with diagonal PCI 02/11/2023. Patient saw his primary collection advisor on 10/11/2024 and was told that he could proceed with surgery. Reportedly had EKG and echo prior to that office visit which were ok, will request records for
review. does report that patient occasionally does have chest discomfort however patient denies this and states he had leg tightness but not chest discomfort.
PMH:
PAD
h/o critical left subclavian stenosis, incidental finding on cath 02/11/23
s/p lithotripsy angioplasty with stent placement to left subclavian artery 04/14/23
CAD
s/p CABG x3 DUGGAN-LAD, VG-OM-PDA 06/14/2017
NSTEMI with Diagonal PCI, 02/11/23
, s/p AVR 25mm bovine 06/14/2017
HTN
HLD
MATILDE
NIDDM
GERD
Fatty liver
TIA/CVA lacunar
Alcohol use disorder
Former smoker
h/o TKR
Past Medical History
Past Medical History: Other (In HPI)
Past Surgical History: Appendectomy and Cardiac (Tissue AVR 2017, CABG 2017)
Social History
Tobacco: Former Smoker
Alcohol: Daily (6 pack of thompson lite)
Drug: None
Personal:
Living: With Family
Employment: Not Employed
Family History
Family History: CAD (CHF)
Allergies / Home Medications
Allergy/AdvReac Type Severity Reaction Status Date / Time
codeine Allergy Nausea / Verified 10/26/24 07:21
Vomiting
grapefruit Allergy lips turn Verified 10/26/24 07:21
red,
swelling,
throat
irritation
�Medication �Instructions �Recorded �Confirmed �Type
aspirin 81 mg tablet,delayed 81 mg PO DAILY Blood Clot 05/05/17 10/26/24 History
release Prevention/Tx
blood sugar diagnostic (Blood #150 strips 06/18/17 10/26/24 Rx
Glucose Test strips)
lancets 30 gauge #200 ea 06/18/17 10/26/24 Rx
atorvastatin 80 mg tablet 80 mg PO QPM High Cholesterol 02/11/23 10/26/24 History
empagliflozin 25 mg tablet 25 mg PO DAILY Diabetes 02/11/23 10/26/24 History
(Jardiance)
metoprolol tartrate 25 mg tablet 12.5 mg PO BID Blood Pressure 02/11/23 10/26/24 History
nitroglycerin 0.4 mg sublingual 0.4 mg sublingual ONCE CHEST PAIN 02/11/23 10/26/24 History
tablet
pantoprazole 40 mg tablet,delayed 40 mg PO DAILY #90 tabs 02/12/23 10/26/24 Rx
release
cilostazol 50 mg tablet 50 mg PO BID 10/17/24 10/26/24 History
ibuprofen 200 mg tablet (Advil) 200 mg PO Q6H PRN pain 10/17/24 10/26/24 History
ezetimibe 10 mg tablet 10 mg PO DAILY 10/26/24 10/26/24 History
Review of Systems
-
History Source: Patient and Family
All other systems: Negative unless noted
Physical Exam
Vital Signs
Temp Pulse Resp BP Pulse Ox
98.0 F 90 21 105/69 94
10/26/24 16:03 10/26/24 16:00 10/26/24 16:00 10/26/24 15:49 10/26/24 16:00
Lab Results
10/26/24 12:31
10/26/24 12:31
Physical Exam
General: No Apparent Distress, Comfortable and Other (on supp O2)
HEENT: Normocephalic, Anicteric and Moist Mucous Membranes
Respiratory: Clear and Non Labored Respirations
Cardiac: S1/S2 and Regular Rhythm
GI: Soft, Non Tender, Non Distended and Normal Bowel Sounds
Musculoskeletal: No Clubbing, No Cyanosis and No Edema
Skin: Warm, Dry and Other (R chest incision c/d/i)
Neuro: AO x 3
Impression / Plan
-
Primary Care Physician: Dr. Krishna Major
Referring Physician: Dr. Chico Ramon
Impression:
Admitted for right right axillary to bifemoral artery bypass 10/26/2024
32 beats NSVT 10/26/2024
PAD
h/o critical left subclavian stenosis, incidental finding on cath 02/11/23
s/p lithotripsy angioplasty with stent placement to left subclavian artery 04/14/23
CAD
s/p CABG x3 DUGGAN-LAD, VG-OM-PDA 06/14/2017
NSTEMI with Diagonal PCI, 02/11/23
, s/p AVR 25mm bovine 06/14/2017
HTN
HLD
MATILDE
NIDDM
GERD
Fatty liver
TIA/CVA lacunar
Alcohol use disorder
Former smoker
h/o TKR
Echo 02/11/2023: GVH study, normal EF, normal function of tissue AVR
Plan:
-Patient presented to the hospital for elective right axillary to bifemoral bypass procedure with vascular surgery and cardiology is now consulted to see patient for 32-beat run NSVT postop, of which patient was asymptomatic. Patient has been
following with vascular surgery in the office for symptoms of claudication and patient was scheduled for right axillary to bifemoral artery bypass that was performed today. Patient has a history of CAD s/p CABG in 2018 at time of his tissue AVR and
then he had NSTEMI with diagonal PCI 02/11/2023. Patient saw his primary collection advisor on 10/11/2024 and was told that he could proceed with surgery. Reportedly had EKG and echo prior to that office visit which were ok, will request records for
review. does report that patient occasionally does have chest discomfort however patient denies this and states he had leg tightness but not chest discomfort.
-ECG 10/26/24 reviewed by me is NSR without acute ST changes
-Labs performed at 1231 on 10/26/2024 were reviewed by me, potassium was normal at 4.4, magnesium level was not checked but is ordered and now pending.
-will follow on tele
-resume OP lopressor 12.5mg BID, can uptitrate if needed
-d/w retort cooler
-d/w patient and at bedside
Data Reviewed
-
EKG: Tracing Personally Visualized and interpreted
Medical Tests (Nuc Med, Echo etc): Report Reviewed by me
Labs: Labs Reviewed by me
Old Records: Requested and Reviewed
[2024-10-26] MEDS: NOVOLOG FLEXPEN-LOW RESISTANCE 1 UNITS SC (17:11)
[2024-10-26] MEDS: LIPITOR 80 MG PO (17:11)
[2024-10-26 17:59] LABS: Magnesium 2.1 mg/dl (1.6-2.3)
[2024-10-26 18:03] LABS: Troponin I < 0.012 ng/ml
--- NOTE | 2024-10-26 18:15 | PTCARENOTE ---
Pt was rec'd into ICU 3371 from PACU approx 14:00, neurovascular checks performed in tandem with TERMINAL CARMAN Ford. Pt with left radial arterial line, Montalvo catheter, IVF infusing as ordered, oriented to room and plan of care. Orders reviewed and carried
out, admission completed with assistance of at beside. MSAS protocol ordered for daily ETOH use (6 lite beers) last drink Wednesday10/23/24. Call nieves in hand, safe environment continues.
--- NOTE | 2024-10-26 19:20 | PTCARENOTE ---
Assumed care. Patient received lying in bed, awake, alert and oriented watching TV. He is without apparent signs of distress or discomfort. He currently denies pain, no CP, SOB, LARA or nausea. See wood room supervisor charted on worklist flowsheet. Right
supraclavicular incision approximated with dermabond CDI. Bilateral groin sites with Aquacell dressings CDI. See neurovascular checks--Bilateral pedal pulses and left post tib pulses positive with doppler, right PT pulse palpable. Montalvo catheter
patent draining clear yellow urine. Left [place] positional; good wave form and good square wave when proper position. Arm board placed to left arm for Juliana. BBS clear except right ML and RLL with fine crackles. S1S2 regular. SR with 1st degree AVB
on CM. Large right flank hematoma noted with palpable cord. Upper flank hematoma firm, softer lower flank. fisher scallop vascular surgeon Dr. Pride notified. New orders received for blood work, drawn from [place]. Bed in low and locked position, call
nieves within reach.
--- NOTE | 2024-10-26 20:10 | PTCARENOTE ---
Dr. Banks at bedside to assess right flank hematoma. Dr Banks updated with patient clinical status. Noted by MD that bruising is expected.
[2024-10-26 20:15] LABS: Hematocrit 32.6 % (39.0-52.0); Hemoglobin 10.2 g/dL (13.0-18.0); Mean Corp Hgb Conc. 31.3 g/dL (33.0-37.0); Mean Corpuscular Volume 78.9 fL (80.0-94.0); Platelet Count 153 10^3/uL (130-400); Red Cell Dist. Width 15.8 % (11.5-14.5)
[2024-10-26] MEDS: LOPRESSOR 25 MG PO (20:21)
[2024-10-26] MEDS: VITAMIN B1 100 MG PO (20:21)
[2024-10-26 20:42] LABS: Blood Urea Nitrogen 10 mg/dl (9-20); Calcium 8.7 mg/dl (8.4-10.2); Carbon Dioxide 22 mmol/L (22-30); Chloride 106 mmol/L (98-107); Estimated Creatinine Clearance 80 ml/min; Glucose 210 mg/dl (70-99); Potassium 4.6 mmol/L (3.5-5.1); Sodium 134 mmol/L (135-145); eGFR > 60.00
[2024-10-26 22:57] LABS: Glucose - Point of Care 148 mg/dl (70-99)
[2024-10-26] MEDS: TYLENOL 650 MG PO (23:16)
[2024-10-26 23:18] LABS: Troponin I < 0.012 ng/ml
--- NOTE | 2024-10-26 23:55 | PTCARENOTE ---
Physical assessment remains unchanged. Right flank hematoma appears stable. Good UO. Appears to be dozing off/on when undisturbed. Currently without pain. No complaints offered. All labs and orders have been reviewed.
[2024-10-27] VITALS (18 sets, daily range): BP systolic 105–142; BP diastolic 51–87; BMI 35.2
[2024-10-27] MEDS: NSS 1000 IV (01:18)
--- NOTE | 2024-10-27 04:30 | PTCARENOTE ---
Addendum entered by Jenny Unger RN 10/27/24 04:53:
Right flank hematoma appears stable, tender to palpation. Patient feels his skin tight on right flank. Upper hematoma is softening.
Original Note:
Patient dozing off/on. Repositioned in bed. Afebrile, VSS. Am labs drawn. Neurovascular checks unchanged. Rest of physical assessment unchanged. Denies pain.
[2024-10-27 04:54] LABS: Hematocrit 32.0 % (39.0-52.0); Hemoglobin 9.7 g/dL (13.0-18.0); Mean Corp Hgb Conc. 30.3 g/dL (33.0-37.0); Mean Corpuscular Volume 78.8 fL (80.0-94.0); Platelet Count 152 10^3/uL (130-400); Red Cell Dist. Width 15.9 % (11.5-14.5)
[2024-10-27 05:13] LABS: INR 1.04; PT 14.1 Sec (11.4-14.6)
[2024-10-27 05:14] LABS: APTT 30.5 Sec (23.4-35.0)
[2024-10-27 05:16] LABS: Blood Urea Nitrogen 9 mg/dl (9-20); Calcium 8.5 mg/dl (8.4-10.2); Carbon Dioxide 26 mmol/L (22-30); Chloride 109 mmol/L (98-107); Estimated Creatinine Clearance 80 ml/min; Glucose 135 mg/dl (70-99); Potassium 4.2 mmol/L (3.5-5.1); Sodium 137 mmol/L (135-145); eGFR > 60.00
--- NOTE | 2024-10-27 07:09 | PTCARENOTE ---
Report given verbally to oncoming shift, Viki RN. Bedside rounds completed. Questions answered.
[2024-10-27 07:24] LABS: Glucose - Point of Care 147 mg/dl (70-99)
[2024-10-27] MEDS: NOVOLOG FLEXPEN-LOW RESISTANCE SC ×2 (07:24→16:56)
--- NOTE | 2024-10-27 07:35 | W.PN.INTV ---
Today's Communication / Plan
Recommendations
Neurovascular checks continue
Increase activity
Begin to deline
Monitor for arrhythmias
Assessment
-
74-year-old former smoking male with a history of obesity, fatty liver, hypertension, TIA, CAD with stent who was noted to have significant PAD and underwent aortobifem bypass-organ teacher consulted for postoperative critical care management 10/26/2024.
Peripheral artery disease
Status post right axillary aortobifem bypass with ringed propatent graft-Dr. Banks-10/26/2024
Hyperglycemia
Nonsustained asymptomatic ventricular tachycardia-32 beat 10/26/2024
Conditions present prior to admission:
Hypertension.
Hyperlipidemia.
CAD/stent/CABG/AVR 2017.
Aortic stenosis.
Obesity-BMI 34
Diabetes.
Fatty liver.
Chronic back pain.
Allergies.
GERD.
History of shingles.
Cataract. Bilateral knee replacement. Appendectomy.
Plan
Hemodynamically and neurovascularly intact
Wean supplemental oxygen
Incentive spirometry encourage
Aspiration precautions
Monitor hemoglobin
Transfuse if needed
Monitor blood sugars
Insulin supplementation if needed
Monitor for recurrent ventricular tachycardia
Cardiology following-correspondence reviewed
Calcium supplement
Monitor magnesium and potassium
Troponin negative as is EKG
Repeat echocardiogram
Continue metoprolol
Neuro and vascular checks per protocol also continue
Vascular surgery closely
DVT prophylaxis recommended
Nutrition
Increase activity/physical therapy
Patient can be transferred out of ICU-call pulmonary if respiratory issues arise
Consider outpatient sleep apnea workup-has some snoring when sleeping on his back and no significant daytime somnolence
Outpatient follow-up with Dr. Ramon-his fiber optic assembly worker
Reviewed the patient�s pertinent medical records including radiographs, microbiology, laboratory evaluations, and��discussion with primary team, consultants, pharmacy, nutrition, physical therapy, case management, charge nurse, critical care
nursing, and respiratory therapy.
Diagnostic data:
Chest x-ray 06/18/17-small left pleural effusion
Chest x-ray 10/20/2024-NAD
CT angiogram 10/05/2024-stent within the left subclavian artery without significant stenosis, severe coronary artery calcifications no pulmonary emboli, lungs are clear without evidence of emphysema pneumothorax, pleural effusions
Cardiac catheterization 04/14/2023-successful percutaneous intervention of left subclavian artery with placement of covered stent graft
Subjective Dataa
Subjective Data
Date of Service:
Date of Service: October 27, 2024
Chief Complaint: Cryptologic Support Specialist Follow Up and Pulmonary Follow Up
Subjective:
Denies any shortness of breath, chest pain, abdominal pain
Review of Systems
General: Other (Per HPI)
Objective Data
Data Reviewed
Vital Signs / I&O / Oxygen:
Vital Signs
Temp Pulse Resp BP Pulse Ox
98.5 F 81 20 119/53 96
10/27/24 07:33 10/27/24 07:00 10/27/24 07:00 10/26/24 20:21 10/27/24 07:00
Intake and Output
10/26/24 10/27/24 10/28/24
06:59 06:59 06:59
Intake Total 3090 / 3090
Output Total 2960 / 2960
Balance 130 / 130
SaO2 96
Nasal Cannula flow liters per 2
minute
Physical Exam
General: Respiratory Distress and Comfortable
HEENT: Normocephalic and Moist Mucous Membranes
Cardiovascular: Regular Rhythm
Respiratory: Crackles (n), Rhonchi (n), Non-Labored Respirations, Accessory Resp Muscle Use (n) and Stridor
GI: Soft, Non Distended and Non Tender
Neurology: Awake, Alert and No Motor Deficits
Skin: Warm, Good Color, Cyanosis (n), Jaundice (n) and Rash (n)
Labs/Micro/Reports
Lab Data
10/27/24 04:31
10/27/24 04:31
Laboratory Results
10/26/24 10/27/24
12:31 04:31
PT 14.2 14.1
INR 1.05 1.04
APTT 30.0 30.5
--- NOTE | 2024-10-27 07:38 | W.PN.VS ---
Addendum entered and electronically signed by Guillermo Banks MD 10/27/24 09:50:
Seen and examined with QUARRYING MANAGER's. Agree with findings as noted below. Appreciate cardiology evaluation and follow-up. Patient without significant complaints just some soreness along the lateral chest wall tunnel site. Right chest wall incision clean
dry and intact. No hematoma. Right lateral chest wall tunnel site with ecchymosis, but no hematoma noted. Groins are flat bilaterally. Dressings clean dry and intact bilaterally. Feet are warm with dopplerable right PT and DP, left DP. Plan/as
discussed and noted below.
Original Note:
Today's Communication / Plan
-
Seen and assessed with Dr. Banks
Assessment/Plan
-
Postop day 1 Right axillary to bifemoral artery bypass with [place] Propaten 8 mm ringed axillary bifemoral graft
Plan:
DC A-line
DC Montalvo
DC IV fluids
Out of bed/chair
Ice pack to tunnel site
No abduction over 90 degrees for the right arm
Continue ICU today
Subjective Data
-
Date of Service: October 27, 2024
Patient seen at bedside examined after. Patient offers no complaints at this time. No events overnight after V. tach episode.
Objective Data
-
Vital Signs
Temp Pulse Resp BP Pulse Ox
98.5 F 81 20 119/53 96
10/27/24 07:33 10/27/24 07:00 10/27/24 07:00 10/26/24 20:21 10/27/24 07:00
Intake and Output
10/26/24 10/27/24 10/28/24
06:59 06:59 06:59
Intake Total 3090 / 3090
Output Total 2960 / 2960
Balance 130 / 130
Intake:
Oral fluids 1560 / 1560
IV fluids (Total) 1430 / 1430
Nss 1,000 ml @ 80 mls/hr IV . 1280 / 1280
[id number] [facility] Rx#:[id number]
normosol 150 / 150
IV piggybacks 100 / 100
Output:
Urine, [place]alvo 2960 / 2960
Lab Results
10/27/24 04:31
10/27/24 04:31
Calcium 8.5 mg/dl (8.4-10.2) 10/27/24 04:31
Phosphorus 4.0 mg/dl (2.5-4.5) 10/26/24 17:26
Magnesium 2.1 mg/dl (1.6-2.3) 10/26/24 17:26
Physical Exam
-
AAO x 3
No tachypnea on room air
No tachycardia
Abdomen soft
Right lateral chest tunneled site with moderate ecchymosis
Feet warm and pink
+ Doppler signals bilaterally
--- NOTE | 2024-10-27 08:08 | W.PN.CARDCBS ---
Addendum entered and electronically signed by Shantanu Hernandez MD 10/27/24 09:19:
74-year-old man with history of CABG and bioprosthetic aortic valve replacement in 2017, subsequent PCI in 2022 who underwent a right axillary to bifemoral bypass on October 26, postoperatively had a long run of nonsustained VT.
PMH: CAD/CABG/PCI/AVR as above, hypertension, hyper lipidemia, PAD, diabetes, GERD, Mastel D, prior CVA, history of alcohol and tobacco use, TKR
Meds: Reviewed, as outpatient is on aspirin, atorvastatin 80, cilostazol, ezetimibe, Jardiance, metoprolol tartrate, pantoprazole
119/53, pulse 81, respiratory 20, afebrile, intake and output equal,, some postoperative tenderness along right thorax and flank at site of tunneled graft. Incisions intact, clean, lungs are clear, regular rate and rhythm without murmurs abdomen
distended, no edema
Chest x-ray: No active disease
Normal sinus rhythm, normal ECG
Hemoglobin 9.7, BUN and creatinine are 9 and 0.9, troponin is undetectable
Telemetry: No further VT
Impression:
Status post axillobifemoral 11/16
Nonsustained VT
CAD/prior CABG/prior diagonal PCI/bioprosthetic AVR
History of TIA/CVA
Massively
Diabetes
Cerebrovascular disease
GERD
History of tobacco and alcohol use
TKR
Plan:
Despite his nonsustained VT, he looks well this morning. His troponin was undetectable. He is in sinus rhythm. He is not having dyspnea or chest discomfort.
He did not have a recent echo, and was scheduled for stress test that was never performed. We will check his echo and his stress test can be performed as an outpatient.
We have been in touch with Dr. Ramon.
Continue metoprolol, continue to observe on telemetry await echocardiogram.
Postoperative management per vascular surgery. From that standpoint he looks well and pulses are palpable in his feet, PT is easier than DPs.
Dr. Ramon to arrange for outpatient follow-up.
Await echocardiogram.
Original Note:
Today's Communication / Plan
-
Continue postoperative care
Electrolytes stable
Continue Lopressor
Obtain echo results
Outpatient follow-up with [facility]
Impression / Plan
-
Primary Care Physician: Dr. Krishna Major
Referring Physician: Dr. Ch[place] Ramon
Impression:
Admitted for right axillary to bifemoral artery bypass 10/26/2024
32 beats NSVT 10/26/2024
PAD
h/o critical left subclavian stenosis, incidental finding on cath 02/11/23
s/p lithotripsy angioplasty with stent placement to left subclavian artery 04/14/23
CAD
s/p CABG x3 DUGGAN-LAD, VG-OM-PDA 06/14/2017
NSTEMI with Diagonal PCI, 02/11/23
, s/p AVR 25mm bovine 06/14/2017
HTN
HLD
MATILDE
NIDDM
GERD
Fatty liver
TIA/CVA lacunar
Alcohol use disorder
Former smoker
h/o TKR
Echo 02/11/2023: GVH study, normal EF, normal function of tissue AVR
Plan:
- Status post right axillary to bifemoral artery bypass 10/26/2024
- Yesterday afternoon had 32 beat run of NSVT, patient asymptomatic
- Does have noted cardiac history including CABG, PCI, AVR as above
- No issues overnight. Denies chest pain, shortness of breath
- Telemetry reviewed overnight, no recurrences of NSVT or of frequent PVCs
- K and magnesium remain stable
- Continue Lopressor, could consider uptitration if needed
- EKG remains sinus rhythm
- Have requested preop echo records from [facility]
- Discussed with primary chief supply chain officer, will consider for outpatient ischemic evaluation once recovered from vascular procedure as well as monitoring and evaluation advisor to assess for additional asymptomatic NSVT
- Discussed with nursing
Progress Note - Extrusion Technician
Subjective
Date of Service: October 27, 2024
Denies chest pain, shortness of breath. Denies significant pain
Objective
Labs:
10/27/24 04:31
10/27/24 04:31
Labs
Hgb 9.7 g/dL (13.0-18.0) L 10/27/24 04:31
Hct 32.0 % (39.0-52.0) L 10/27/24 04:31
Plt Count 152 10^3/uL (130-400) 10/27/24 04:31
PT 14.1 Sec (11.4-14.6) 10/27/24 04:31
INR 1.04 10/27/24 04:31
APTT 30.5 Sec (23.4-35.0) 10/27/24 04:31
Sodium 137 mmol/L (135-145) 10/27/24 04:31
Potassium 4.2 mmol/L (3.5-5.1) 10/27/24 04:31
BUN 9 mg/dl (9-20) 10/27/24 04:31
Creatinine 0.9 mg/dL (0.7-1.3) 10/27/24 04:31
Glucose 135 mg/dl (70-99) H 10/27/24 04:31
Troponins
10/26/24 10/26/24
17:26 22:44
Troponin I < 0.012 < 0.012
Vital Signs and I&O:
Vital Signs
Temp Pulse Resp BP Pulse Ox
98.5 F 81 20 119/53 96
10/27/24 07:33 10/27/24 07:00 10/27/24 07:00 10/26/24 20:21 10/27/24 07:00
Vital Signs
Temp Pulse Resp BP Pulse Ox
98.5 F 81 20 119/53 96
10/27/24 07:33 10/27/24 07:00 10/27/24 07:00 10/26/24 20:21 10/27/24 07:00
Intake & Output
10/25/24 10/26/24 10/27/24 10/28/24
07:59 07:59 07:59 07:59
Intake Total 3090 / 3090
Output Total 2960 / 2960
Balance 130 / 130
Physical Exam
Physical Exam
GEN: No distress, awake, alert, oriented x3. On supplemental O2
HEENT: supple, anicteric, mmm, EOMI
LUNGS: CTA bilaterally, no wheezes/rales
CV: Reg, S1/S2, no murmur
ABD: soft, BS+, NT/ND
EXT: No cyanosis, clubbing, edema
NEURO: Gross non-focal
SKIN: Warm, pink, dry. No rash. Right upper chest incision site clean dry and intact
[2024-10-27] MEDS: ASPIR LOW (ENTERIC COATED) 81 MG PO (08:40)
[2024-10-27] MEDS: VITAMIN B1 100 MG PO ×2 (08:40→19:39)
[2024-10-27] MEDS: FARXIGA 10 MG PO (08:40)
[2024-10-27] MEDS: ZETIA 10 MG PO (08:40)
[2024-10-27] MEDS: PROTONIX 40 MG PO (08:40)
[2024-10-27] MEDS: LOPRESSOR 25 MG PO ×2 (08:40→19:36)
[2024-10-27] MEDS: HEPARIN 5000 UNITS SC ×3 (08:41→22:36)
[2024-10-27 09:49] LABS: Glycohemoglobin (HgbA1c) 6.6 % (4.0-5.6)
--- NOTE | 2024-10-27 11:07 | PTCARENOTE ---
Pt rec'd in report from night RN, neurovascular checks performed in tandem with offgoing RN as well as vascular team who was rounding at the time. See worklist. Right flank hematoma/large area of purple eccymosis observed. Per Dr. Banks, this is
expected. Orders rec'd and carried out to dc Art line, kuhn catheter and IVF. Pt AOX3 with no complaints. MSAS WNL and frequency adjusted to Q4 hour checks per protocol. Plan discussed with nozzle operator and cardiology, Echo ordered. Pt updated and
in agreement with plan. Call nieves in reach. electronic bench technician arrived in room at this time.
--- NOTE | 2024-10-27 11:44 | CARDSERVLU ---
Echocardiogram with Lumason completed after protocol screening completed. Allergies verified.
Patent IV site: _L forearm_
IV site flushed with 0.9% NaCl pre and post administration.
Diluted bolus method utilized to enhance visualization of ventricular bernard.
Total volume given: __4__ mL
Patient tolerated all procedures well without complications.
[2024-10-27 12:16] LABS: Glucose - Point of Care 156 mg/dl (70-99)
[2024-10-27] MEDS: NOVOLOG FLEXPEN-LOW RESISTANCE 1 UNITS SC (12:19)
[2024-10-27] MEDS: TYLENOL 650 MG PO ×3 (12:19→22:34)
--- NOTE | 2024-10-27 12:31 | CM ---
Initial assessment completed with patient who lives with his in a 1 story home plus basement with 1 step to enter. MEAT HOSTESS patient was independent in ADL's and ambulation, drives. Has SPC's and a glucometer in the home. No in-home services. No
HC-POA. No VA Benefits. No psychiatric hospitalizations. ordered consult for ETOH withdrawal risk. Discussed [facility] with patient. He has no interest in BCARES services and has declined [facility] visiting him. PCP is Dr. Benito Finney. Pharmacy
is [facility] on [address] in [place]. Discharge POC: Anticipate home with no needs vs HH RN.
[2024-10-27 16:52] LABS: Glucose - Point of Care 133 mg/dl (70-99)
[2024-10-27] MEDS: LIPITOR 80 MG PO (16:59)
--- NOTE | 2024-10-27 17:10 | PN.CDI ---
CDI
- -
CDI:
Physician Documentation Request
Admit Date: 10/26/24 06:17
Dear Tia Butler
Patient is s/p Right axillary to bifemoral artery bypass with [place] Propaten 8 mm ringed axillary bifemoral graft
H/H results
Laboratory Tests
10/20/24 10/26/24 10/26/24
09:43 12:31 20:06
Hgb 12.9 L 11.0 L 10.2 L
Hct 41.9 36.0 L 32.6 L
10/27/24
04:31
Hgb 9.7 L
Hct 32.0 L
Could you please provide a diagnosis that supports the above lab abnormalities and additional evaluation/monitoring:
acute blood loss anemia
anemia - please specify
Abnormal lab value clinically insignificant
Other
Use of terms such as suspected, likely, concern for, or probable (associated with a specific diagnosis that is being evaluated, monitored, or treated as if it exists) are acceptable and can be coded in the inpatient setting, when documented at the
time of discharge.
Thank you,
Haley Araujo RN, BSN
CDI Specialist
tiger text
Please use your independent medical judgment in providing your response.
--- NOTE | 2024-10-27 18:09 | PTCARENOTE ---
Pt's groin dressings removed by vascular piano assembler this afternoon, surgical glue applied. Pt resting back in bed at this time, watching TV, no complaints. at bedside.
--- NOTE | 2024-10-27 19:20 | PTCARENOTE ---
Assumed care. Patient received lying in bed, awake, alert and oriented watching TV. He is without apparent signs of distress or discomfort. See animal nutritionist charted on worklist flowsheet. BBS clear except bilateral bases with fine crackles. S1S2
regular, SR on CM with 1st degree AVB. States he has mild pain of bilateral surgical groin sites and right flank hematoma. Right flank hematoma soft and boggy. Pedal pulses weak on palpation. No edema. Voids per urinal without difficulty. Surgical
incisions well approximated with surgical adhesive in place. Bed in low and locked position, call nieves within reach.
--- NOTE | 2024-10-27 23:15 | PTCARENOTE ---
No change in patient's physical assessment. Afebrile, VSS. Tylenol given prior to bedtime for c/o right flank and bilateral groin discomfort. Dozing off/on intermittently. Call nieves within reach.
[2024-10-28] VITALS (18 sets, daily range): BP systolic 100–151; BP diastolic 52–98; PULSE 87; O2SAT 92; BMI 34.7
--- NOTE | 2024-10-28 04:00 | PTCARENOTE ---
Addendum entered by Jenny Unger RN 10/28/24 06:29:
Patient states that he has slept well t/o night.
Original Note:
Patient physical assessment unchanged. Voids per urinal with good UO. AM labs drawn. VSS. No complaints offered.
[2024-10-28 04:18] LABS: Hematocrit 36.3 % (39.0-52.0); Hemoglobin 11.0 g/dL (13.0-18.0); Mean Corp Hgb Conc. 30.3 g/dL (33.0-37.0); Mean Corpuscular Volume 79.1 fL (80.0-94.0); Platelet Count 151 10^3/uL (130-400); Red Cell Dist. Width 16.2 % (11.5-14.5)
[2024-10-28 04:48] LABS: Blood Urea Nitrogen 13 mg/dl (9-20); Calcium 8.5 mg/dl (8.4-10.2); Carbon Dioxide 24 mmol/L (22-30); Chloride 107 mmol/L (98-107); Estimated Creatinine Clearance 81 ml/min; Glucose 125 mg/dl (70-99); Potassium 4.1 mmol/L (3.5-5.1); Sodium 137 mmol/L (135-145); eGFR > 60.00
--- NOTE | 2024-10-28 07:00 | PTCARENOTE ---
Report given verbally to oncoming rajni, Pilar COLE. Bedside rounds completed. Questions answered.
--- NOTE | 2024-10-28 07:58 | W.PN.INTV ---
Today's Communication / Plan
Recommendations
Increase activity
Neurovascular checks
Wean oxygen
No further episodes of nonsustained ventricular tachycardia
Transfer to telemetry-appliance sales associate will sign off-please call pulmonary if respiratory issues arise
Assessment
-
74-year-old former smoking male with a history of obesity, fatty liver, hypertension, TIA, CAD with stent who was noted to have significant PAD and underwent aortobifem bypass-appliance sales associate consulted for postoperative critical care management 10/26/2024.
Peripheral artery disease
Status post right axillary aortobifem bypass with ringed propatent graft-Dr. Banks-10/26/2024
Hyperglycemia
Nonsustained asymptomatic ventricular tachycardia-32 beat 10/26/2024
Conditions present prior to admission:
Hypertension.
Hyperlipidemia.
CAD/stent/CABG/AVR 2018.
Aortic stenosis.
Obesity-BMI 34
Diabetes.
Fatty liver.
Chronic back pain.
Allergies.
GERD.
History of shingles.
Cataract. Bilateral knee replacement. Appendectomy.
Plan
Hemodynamically and neurovascularly intact
Wean supplemental oxygen-94% on room air
Incentive spirometry encourage
Aspiration precautions
Monitor hemoglobin
Transfuse if needed
Monitor blood sugars
Insulin supplementation if needed
Monitor for recurrent ventricular tachycardia
Cardiology following-correspondence reviewed
Calcium supplemented
Monitor magnesium and potassium
Troponin negative as is EKG
Repeat echocardiogram
Continue metoprolol
Neuro and vascular checks per protocol also continue
Vascular surgery closely-correspondence reviewed
DVT prophylaxis recommended
Nutrition
Increase activity/physical therapy
Patient can be transferred out of ICU-call pulmonary if respiratory issues arise
Consider outpatient sleep apnea workup-has some snoring when sleeping on his back and no significant daytime somnolence
Outpatient follow-up with Dr. Ramon-his bias cutting machine operator
Reviewed the patient�s pertinent medical records including radiographs, microbiology, laboratory evaluations, and��discussion with primary team, consultants, pharmacy, nutrition, physical therapy, case management, charge nurse, critical care
nursing, and respiratory therapy.
Diagnostic data:
Chest x-ray 06/18/17-small left pleural effusion
Chest x-ray 10/20/2024-NAD
CT angiogram 10/05/2024-stent within the left subclavian artery without significant stenosis, severe coronary artery calcifications no pulmonary emboli, lungs are clear without evidence of emphysema pneumothorax, pleural effusions
Cardiac catheterization 04/14/2023-successful percutaneous intervention of left subclavian artery with placement of covered stent graft
Subjective Dataa
Subjective Data
Date of Service:
Date of Service: October 28, 2024
Chief Complaint: Senior Medical Technologist Follow Up and Pulmonary Follow Up
Subjective:
No complaints of shortness of breath, chest pain, abdominal pain
Review of Systems
General: Other (Per HPI)
Objective Data
Data Reviewed
Vital Signs / I&O / Oxygen:
Vital Signs
Temp Pulse Resp BP Pulse Ox
98.3 F 87 27 131/57 95
10/28/24 03:50 10/28/24 07:00 10/28/24 07:00 10/28/24 07:00 10/28/24 04:00
Intake and Output
10/27/24 10/28/24 10/29/24
06:59 06:59 06:59
Intake Total 3090 / 3170 2356 / 2356
Output Total 2960 / 3060 2825 / 2825
Balance 130 / 110 -469 / -469
SaO2 95
Nasal Cannula flow liters per 2
minute
Physical Exam
General: Respiratory Distress and Comfortable
HEENT: Normocephalic and Moist Mucous Membranes
Cardiovascular: Regular Rhythm
Respiratory: Crackles (n), Rhonchi (n), Non-Labored Respirations, Accessory Resp Muscle Use (n) and Stridor
GI: Soft, Non Distended and Non Tender
Neurology: Awake, Alert and No Motor Deficits
Skin: Warm, Good Color, Cyanosis (n), Jaundice (n) and Rash (n)
Labs/Micro/Reports
Lab Data
10/28/24 04:00
10/28/24 04:00
[2024-10-28] MEDS: NOVOLOG FLEXPEN-LOW RESISTANCE SC ×2 (08:40→17:13)
[2024-10-28 08:42] LABS: Glucose - Point of Care 147 mg/dl (70-99)
[2024-10-28] MEDS: VITAMIN B1 100 MG PO ×2 (08:48→19:26)
[2024-10-28] MEDS: HEPARIN 5000 UNITS SC ×3 (08:48→22:47)
[2024-10-28] MEDS: PROTONIX 40 MG PO (08:48)
[2024-10-28] MEDS: ASPIR LOW (ENTERIC COATED) 81 MG PO (08:48)
[2024-10-28] MEDS: ZETIA 10 MG PO (08:48)
[2024-10-28] MEDS: LOPRESSOR 25 MG PO ×2 (08:48→19:25)
[2024-10-28] MEDS: FARXIGA 10 MG PO (08:48)
--- NOTE | 2024-10-28 08:57 | W.PN.UPDATE ---
Update Note
Progress Note Update
tele reviewed. no recurrences of NSVT noted on tele overnight. echo with preserved EF, no significant change compared to prior. OP follow up with [facility]. will sign off, please call with questions
--- NOTE | 2024-10-28 08:57 | W.PN.VS ---
Today's Communication / Plan
-
Plan:
Ambulate/PT
Downgrade to tele
No abduction over 90 degrees for the right arm
Assessment/Plan
-
Postop day 2 Right axillary to bifemoral artery bypass with [place] Propaten 8 mm ringed axillary bifemoral graft
Plan:
Ambulate/PT
Downgrade to tele
No abduction over 90 degrees for the right arm
Subjective Data
-
Date of Service: October 28, 2024
Postop day 2 Right axillary to bifemoral artery bypass with [place] Propaten 8 mm ringed axillary bifemoral graft
Feeling well
No complaints
No foot pain, numbness or weakness
Objective Data
-
Vital Signs
Temp Pulse Resp BP Pulse Ox
98.2 F 87 27 131/57 95
10/28/24 08:00 10/28/24 07:00 10/28/24 07:00 10/28/24 07:00 10/28/24 04:00
Intake and Output
10/27/24 10/28/24 10/29/24
06:59 06:59 06:59
Intake Total 3090 / 3170 2356 / 2356
Output Total 2960 / 3060 2825 / 2825 425 / 425
Balance 130 / 110 -469 / -469 -425 / -425
Intake:
Oral fluids 1560 / 1560 2276 / 2276
IV fluids (Total) 1430 / 1510 80 / 80
Nss 1,000 ml @ 80 mls/hr IV . 1280 / 1360 80 / 80
[id number] [facility] Rx#:[id number]
normosol 150 / 150
IV piggybacks 100 / 100
Output:
Urine, Montalvo 2960 / 3060 375 / 375
Urine, Voided 2450 / 2450 425 / 425
Lab Results
10/28/24 04:00
10/28/24 04:00
Calcium 8.5 mg/dl (8.4-10.2) 10/28/24 04:00
Phosphorus 4.0 mg/dl (2.5-4.5) 10/26/24 17:26
Magnesium 2.1 mg/dl (1.6-2.3) 10/26/24 17:26
Physical Exam
-
Right foot colder than left
signals present bilaterally
motor/sensory intact bilaterally
incisions all CDI with no hematoma
ecchymosis to right chest and flank along tunnel
--- NOTE | 2024-10-28 09:57 | PTCARENOTE ---
Rec'd pt at 0700. Handoff assessment completed with nightshift RN. Pt AAOx3, follows commands, MONTOYA. Monitor SR. Lungs CTA. Right side chest/flank with large amt red/purple ecchymosis. RCW incision and B/L groin incisions with surgical adhesive
intact, mild bruising around sites. +DP/PT pulses. Pt OOB to chair with min assist of 1.
[2024-10-28] MEDS: TYLENOL 650 MG PO ×3 (12:03→22:47)
[2024-10-28 12:08] LABS: Glucose - Point of Care 158 mg/dl (70-99)
[2024-10-28] MEDS: NOVOLOG FLEXPEN-LOW RESISTANCE 1 UNITS SC (12:58)
--- NOTE | 2024-10-28 15:00 | PTCARENOTE ---
Pt in and out of bed throughout shift with min assist of 1. Ambulated with physical therapy using the walker in the hallways. Tele LOC.
[2024-10-28 17:10] LABS: Glucose - Point of Care 116 mg/dl (70-99)
[2024-10-28] MEDS: LIPITOR 80 MG PO (17:14)
--- NOTE | 2024-10-28 19:10 | PTCARENOTE ---
Assumed care. Patient received lying in bed, awake, alert and oriented watching TV, visiting with and daughter. He is without apparent signs of distress or discomfort. He says that his pain of right flank and bilateral groin is tolerable at
2. See air brush operator charted on worklist flowsheet. BBS clear except bilateral bases with fine crackles. S1S2 regular, SR on CM with 1st degree AVB. Large Right flank hematoma soft and boggy except firmer and larger near axilla. Pedal pulses weak
on palpation. No edema. Voids per urinal without difficulty. Surgical incisions well approximated with surgical adhesive in place, ecchymotic. He denies LARA, CP, SOB, Nausea. Bed in low and locked position, call nieves within reach.
[2024-10-29] VITALS: BP 110/59
[2024-10-29 04:00] VITALS: BP 127/60
--- NOTE | 2024-10-29 04:00 | PTCARENOTE ---
Afebrile. VSS. Am labs drawn. Patient c/o testicles feeling swollen. Noted that bruising has extended from bilaterally groin into base of penis and scrotum bilaterally, No pain.
[2024-10-29 04:38] LABS: Hematocrit 33.9 % (39.0-52.0); Hemoglobin 10.4 g/dL (13.0-18.0); Mean Corp Hgb Conc. 30.7 g/dL (33.0-37.0); Mean Corpuscular Volume 80.9 fL (80.0-94.0); Platelet Count 143 10^3/uL (130-400); Red Cell Dist. Width 16.2 % (11.5-14.5)
[2024-10-29 05:00] LABS: Blood Urea Nitrogen 13 mg/dl (9-20); Calcium 8.4 mg/dl (8.4-10.2); Carbon Dioxide 26 mmol/L (22-30); Chloride 107 mmol/L (98-107); Estimated Creatinine Clearance 72 ml/min; Glucose 119 mg/dl (70-99); Potassium 4.2 mmol/L (3.5-5.1); Sodium 137 mmol/L (135-145); eGFR > 60.00
--- NOTE | 2024-10-29 06:53 | PTCARENOTE ---
Report given verbally to Pilar nieto RN. Questions answered.
[2024-10-29 08:21] LABS: Glucose - Point of Care 165 mg/dl (70-99)
[2024-10-29 08:28] VITALS: BP 139/64
[2024-10-29] MEDS: PROTONIX 40 MG PO (08:31)
[2024-10-29] MEDS: HEPARIN 5000 UNITS SC (08:31)
[2024-10-29] MEDS: FARXIGA 10 MG PO (08:31)
[2024-10-29] MEDS: ASPIR LOW (ENTERIC COATED) 81 MG PO (08:31)
[2024-10-29] MEDS: VITAMIN B1 100 MG PO (08:31)
[2024-10-29] MEDS: ZETIA 10 MG PO (08:31)
[2024-10-29] MEDS: LOPRESSOR 25 MG PO (08:32)
[2024-10-29] MEDS: NOVOLOG FLEXPEN-LOW RESISTANCE 1 UNITS SC (08:32)
--- NOTE | 2024-10-29 08:50 | W.PN.VS ---
Today's Communication / Plan
-
Plan:
D/C home
No abduction >90 degress of RUE
Assessment/Plan
-
Postop day 2 Right axillary to bifemoral artery bypass with [place] Propaten 8 mm ringed axillary bifemoral graft
Plan:
D/C home
No abduction >90 degress of RUE
Subjective Data
-
Date of Service: October 29, 2024
Postop day 3 Right axillary to bifemoral artery bypass with [place] Propaten 8 mm ringed axillary bifemoral graft
Feeling well
Up with PT yesterday without issue
Hgb stable
tolerating KAMAR
Feet without pain, numbness or weakness
Objective Data
-
Vital Signs
Temp Pulse Resp BP Pulse Ox
98.3 F 87 23 139/64 97
10/29/24 08:40 10/29/24 08:28 10/29/24 08:28 10/29/24 08:28 10/29/24 08:40
Intake and Output
10/28/24 10/29/24 10/30/24
06:59 06:59 06:59
Intake Total 2356 / 2356 960 / 960
Output Total 2825 / 2825 2675 / 2675 350 / 350
Balance -469 / -469 -1715 / -1715 -350 / -350
Intake:
Oral fluids 2276 / 2276 960 / 960
IV fluids (Total) 80 / 80
Nss 1,000 ml @ 80 mls/hr IV . 80 / 80
[id number] [facility] Rx#:[id number]
Output:
Urine, [place]al[place] 375 / 375
Urine, Voided 2450 / 2450 2675 / 2675 350 / 350
Lab Results
10/29/24 04:09
10/29/24 04:09
Calcium 8.4 mg/dl (8.4-10.2) 10/29/24 04:09
Phosphorus 4.0 mg/dl (2.5-4.5) 10/26/24 17:26
Magnesium 2.1 mg/dl (1.6-2.3) 10/26/24 17:26
Physical Exam
-
Signal present over bypass and in feet
Cannot palpate groin pulses due to patient discomfort with exam
incisions CDI
ecchymosis over right chest/flank stable
feet equally warm bilaterally, motor/sensory intact
[2024-10-29 10:30] VITALS: BP 139/64; PULSE 79; O2SAT 95
--- NOTE | 2024-10-29 11:29 | CM ---
Addendum entered by Macy Sage 10/29/24 11:36:
IMM explained; form signed @[id number]
Original Note:
Met with patient at bedside; he reported that his will provide transport home
PT recommended and provided Rolling Walker; Attending notified via text to write a script; text acknowledged. He was instructed to leave it with ICU Veterinary Milk Specialist tomorrow
Plan: Discharge today to home; no other needs/services recommended
[2024-10-29 11:34] VITALS: BP 136/76
--- NOTE | 2024-10-29 11:49 | PTCARENOTE ---
Rec'd pt at 0700. Pt AAOx3, follows commands, MONTOYA. OOB to bathroom with walker, pt sitting up in recliner chair throughout morning. Ambulated in halls with walker. Monitor SR. Lungs dim bibasilar/CTA. +BM this am in bathroom. RCW and bilat groin
incision with surgical adhesive intact, local ecchymosis. Right side/flank with purple/red ecchymosis. +DP/PT pulses, extremities pink/warm. Discharge instructions received. Spoke with case management and PT about pt possibly needing walker at home.
Physical therapy in to assess pt, pt sent home with walker upon discharge. Instructions reviewed with pt and , verbalized understanding. IV sites and monitor removed. Pt discharged to home at approx 1145.
--- NOTE | 2024-10-30 07:30 | W.PN.UPDATE ---
Update Note
Progress Note Update
CDI:
Physician Documentation Request
Admit Date: 10/26/24 06:17
Patient is s/p Right axillary to bifemoral artery bypass with [place] Propaten 8 mm ringed axillary bifemoral graft
H/H results
Laboratory Tests
10/20/24 10/26/24 10/26/24
09:43 12:31 20:06
Hgb 12.9 L 11.0 L 10.2 L
Hct 41.9 36.0 L 32.6 L
10/27/24
04:31
Hgb 9.7 L
Hct 32.0 L
Could you please provide a diagnosis that supports the above lab abnormalities and additional evaluation/monitoring:
acute blood loss anemia likely d/t open surgical procedure/blood loss/IVF, stable
== END 2024-10-29 11:55 | disposition home or self-care (01) | DRG 253 ==
LOC: ICU 06:17
PROVIDERS: Nurse Practitioner; Nurse Practitioner Acute Care; Surgery; ADMITTING PHYSICIAN Surgery Vascular Surgery; CONSULT PHYSICIAN Internal Medicine Cardiovascular Disease; OTHER PHYSICIAN Internal Medicine Critical Care Medicine; PRIMARYCARE PHYSICIAN Family Medicine
PROC: 03150J8 Bypass Right Axillary Artery to Bilateral Upper Leg Artery with Synthetic Substitute, Open Approach (ICD-10-PCS; 2024-10-26)
DX: E11.51 Type 2 diabetes mellitus with diabetic peripheral angiopathy without gangrene (principal); I47.20 Ventricular tachycardia, unspecified; I87.8 Other specified disorders of veins; Z87.891 Personal history of nicotine dependence; E66.9 Obesity, unspecified; K76.0 Fatty (change of) liver, not elsewhere classified; I10 Essential (primary) hypertension; Z86.73 Personal history of transient ischemic attack (TIA), and cerebral infarction without residual deficits; I25.10 Atherosclerotic heart disease of native coronary artery without angina pectoris; Z95.5 Presence of coronary angioplasty implant and graft; E11.65 Type 2 diabetes mellitus with hyperglycemia; I35.0 Nonrheumatic aortic (valve) stenosis; G89.29 Other chronic pain; K21.9 Gastro-esophageal reflux disease without esophagitis; Z86.19 Personal history of other infectious and parasitic diseases; Z96.653 Presence of artificial knee joint, bilateral; Z68.34 Body mass index [BMI] 34.0-34.9, adult; E78.00 Pure hypercholesterolemia, unspecified; F10.10 Alcohol abuse, uncomplicated; I25.2 Old myocardial infarction; Z79.02 Long term (current) use of antithrombotics/antiplatelets; Z79.82 Long term (current) use of aspirin; Z79.899 Other long term (current) drug therapy; Z88.5 Allergy status to narcotic agent; Z91.018 Allergy to other foods; Z95.1 Presence of aortocoronary bypass graft; Z95.3 Presence of xenogenic heart valve
CPT/HCPCS: 35654; 36415; 71045; 71046; 80048; 82962; 83036; 83735; 84100; 84484; 85025; 85027; 85610; 85730; 86850; 86900; 86901; 86920; 86922; 87070; 93005; 93306; 97116; 97163; Q9950

== ENCOUNTER → 2024-12-11 08:12 | Outpatient (REF) | payer MEDICARE, OTHER, SELFPAY | LOC: RAD 08:12 | PROVIDERS: ATTENDING PHYSICIAN Registered Nurse; FAMILY PHYSICIAN Family Medicine | DX: I73.9 Peripheral vascular disease, unspecified (principal); Z95.828 Presence of other vascular implants and grafts | CPT/HCPCS: 93922; 93925 ==

== ENCOUNTER 2025-01-26 11:44 | Day surgery (SDC) | payer MEDICARE, OTHER, SELFPAY ==
[2025-01-26] VITALS (9 sets, daily range): BP systolic 122–156; BP diastolic 60–97; BMI 32.2
[2025-01-26 12:05] LABS: Hematocrit 36.6 % (39.0-52.0); Hemoglobin 10.9 g/dL (13.0-18.0); Mean Corp Hgb Conc. 29.8 g/dL (33.0-37.0); Mean Corpuscular Volume 73.9 fL (80.0-94.0); Platelet Count 222 10^3/uL (130-400); Red Cell Dist. Width 17.4 % (11.5-14.5)
[2025-01-26 12:52] LABS: Glucose - Point of Care 114 mg/dl (70-99)
[2025-01-26 13:13] LABS: Blood Urea Nitrogen 12 mg/dl (9-20); Calcium 9.0 mg/dl (8.4-10.2); Carbon Dioxide 28 mmol/L (22-30); Chloride 105 mmol/L (98-107); Estimated Creatinine Clearance 72 ml/min; Glucose 114 mg/dl (70-99); Potassium 4.5 mmol/L (3.5-5.1); Sodium 138 mmol/L (135-145); eGFR > 60.00
--- NOTE | 2025-01-26 14:05 | ITS.CL.PACE ---
Food And Drug Inspector - Pacemaker Implant
Pacemaker Implant
Procedure Report:
PACEMAKER IMPLANT REPORT
Primary Care Physician: Dr. Benito Finney
Primary Surg Physician Asst: Myself
Date of Procedure: January 26, 2025
Procedure:
1: Dual chamber pacemaker implantation with fluoroscopic guidance
Indication/Diagnosis:
1: Non-reversible symptomatic bradycardia due to: third degree AV block.
History: The patient is a 74-year-old man with a complex past medical history including complex CAD status post CABG and status post multivessel stenting including the left subclavian artery ostium, severe PAD status post axillobifemoral bypass
within the past year, hypertension, and hyperlipidemia who presents with intermittent presyncope and is found to have symptomatic pauses on Holter monitoring over 3 seconds. He is referred for dual-chamber pacemaker placement.
Antibiotic: Ancef 2 g IV
Sedation: Conscious sedation as per anesthesia staff
Description of Procedure: After informed consent was obtained, 'time out' was called and confirmed, the patient was prepped and draped in a sterile fashion. Lidocaine with epinephrine was used for local anesthesia. Central venous access was
obtained via subclavian venopuncture after a venogram from the left arm confirmed subclavian patency. An incision was made along the left chest and a pre-pectoral pocket was formed. Using a Seldinger technique and peel-away sheaths, the pacing
leads were placed under fluoroscopic guidance. Once testing (see below) showed adequate and stable function, the leads were secured using the suture sleeves. The pocket was liberally irrigated with antibiotic solution. The leads were connected to
the generator header and the leads and generator were placed within the pocket. Fluoroscopy confirmed stable lead position. The pocket was closed in the typical fashion.
IMPLANTS:
Company: [id number], SN: [id number] left Pectoral
RA: [employer] [id number], SN: [id number], RAA
RV: [employer] [id number], SN: [id number], RV apical septum
DEVICE TESTING:
Sensing: RA 4.3 mV, RV 12.0 mV
Capture: RA 0.5 V@0.4ms, RV 0.5 V@0.4ms
Ohms: RA 410, RV 690
FINAL PROGRAMMING
Frankie Pacing: DDD 60-130 ppm
Complications: None.
Fluoroscopy Time (min): 5.6
Radiation Dose (mGy): 17
DAP (Gy.cm2): 2.1
CONCLUSIONS:
1: Successful implant of dual chamber permanent pacemaker
RECOMMENDATIONS:
1. Routine post-op care (tele, CXR).
2. In-Office wound check within 7 days.
3. Office interrogation within 4 weeks.
Copy to: Dr. Benito Finney
--- NOTE | 2025-01-26 16:24 | CM ---
spoke to pt tanya renae, he is pregvindep, lvies with his in a ranch home with 1 step to enter. he denies any dc planning needs. plan is for dc to home when medically stable.
[2025-01-26] MEDS: LIPITOR 80 MG PO (17:00)
[2025-01-26] MEDS: PROTONIX 40 MG PO (17:00)
[2025-01-26] MEDS: ZETIA 10 MG PO (17:00)
[2025-01-26] MEDS: TOPROL XL 25 MG PO (17:13)
--- NOTE | 2025-01-26 17:37 | PTCARENOTE ---
Pt received post procedure at 1530. Pt alert and oriented, denies any pain or discomfort. Left chest pacer dressing dry and intact. No arm immobilizer or sling ordered as per Dr. Ramon. SR - ST, rate 80's to 120's.
[2025-01-26] MEDS: TYLENOL 650 MG PO (19:21)
--- NOTE | 2025-01-26 20:38 | PTCARENOTE ---
Rec'd pt at change of shift. Pt AAO*3, VSS, and S tach (HR 90's) on tele monitor. PT reported mild discomfort at pacer site, PRN Tylenol given as ordered. Pt instructed on L upper extremity restriction and pt verbalized understanding. L upper
chest/pacer site CDI. PT now resting with call nieves in reach. See MAR and flowchart for full pt care and assessment.
[2025-01-26] MEDS: ANCEF 5 IV (21:54)
[2025-01-27 03:59] VITALS: BP 154/78
[2025-01-27 04:16] VITALS: BMI 32.5
[2025-01-27 04:45] LABS: Hematocrit 35.4 % (39.0-52.0); Hemoglobin 10.5 g/dL (13.0-18.0); Mean Corp Hgb Conc. 29.7 g/dL (33.0-37.0); Mean Corpuscular Volume 73.4 fL (80.0-94.0); Platelet Count 234 10^3/uL (130-400); Red Cell Dist. Width 17.2 % (11.5-14.5)
[2025-01-27 05:15] LABS: Blood Urea Nitrogen 13 mg/dl (9-20); Calcium 9.0 mg/dl (8.4-10.2); Carbon Dioxide 26 mmol/L (22-30); Chloride 105 mmol/L (98-107); Estimated Creatinine Clearance 72 ml/min; Glucose 128 mg/dl (70-99); Magnesium 2.5 mg/dl (1.6-2.3); Potassium 4.6 mmol/L (3.5-5.1); Sodium 137 mmol/L (135-145); eGFR > 60.00
[2025-01-27] MEDS: ANCEF 5 IV (05:58)
--- NOTE | 2025-01-27 07:36 | PTCARENOTE ---
attempted to retrieve [employer] electronic report from pt pacemaker as ordered. could not make connection between device tablet on multiple attempts. Second RN to verify, however still not able to make connection. Pt updated and now resting with
call nieves in reach. plan of care ongoing.
[2025-01-27 08:01] VITALS: BP 147/69
[2025-01-27] MEDS: FARXIGA 10 MG PO (08:23)
[2025-01-27] MEDS: TOPROL XL 25 MG PO (08:23)
[2025-01-27] MEDS: ASPIR LOW (ENTERIC COATED) 81 MG PO (08:23)
--- NOTE | 2025-01-27 08:38 | W.PN.CARDCBS ---
Addendum entered and electronically signed by Shantanu Hernandez MD 01/27/25 12:44:
Patient interviewed and examined, note below reviewed in detail and agree, unless otherwise specified.
Medications:: Reviewed
147/69, pulse 4, respiratory rate 20, no distress, lungs are clear, incision intact with minimal blood 4 x 4, regular rate and rhythm no obvious murmurs, No edema
Discussed with Dr. Viveros. Interrogation of pacemaker is satisfactory.
Hemoglobin is 10.5, stable, BUN and creatinine are 13 and 0
ECG sinus rhythm, normal ECG
Impression:
Stable status post pacemaker implantation
Okay for discharge
Original Note:
Today's Communication / Plan
-
Overall stable post pacemaker implant
Discharge to home today
Outpatient cardiology follow-up has been arranged
Continue outpatient cardiac meds
Impression / Plan
-
Primary Care Physician: Dr. Benito Finney
Interior Surface Insulation Worker: Dr. Chico Ramon
Impression:
Elective admission 01/26/2025 for pacemaker implant secondary to presyncope with pauses and heart block
Non-reversible symptomatic bradycardia due to: third degree AV block
Status post dual-chamber Hernandez pacemaker implant 01/26/2025
PAD
h/o critical left subclavian stenosis, incidental finding on cath 02/11/23
s/p lithotripsy angioplasty with stent placement to left subclavian artery 04/14/23
s/p right axillary to bifemoral artery bypass 10/26/2024
CAD
s/p CABG x3 DUGGAN-LAD, VG-OM-PDA 06/14/2017
NSTEMI with Diagonal PCI, 02/11/23
, s/p AVR 25mm bovine 06/14/2017
HTN
HLD
MATILDE
NIDDM
GERD
Fatty liver
TIA/CVA lacunar
Alcohol use disorder
Former smoker
h/o TKR
Echo 10/27/2024: EF 58%. Normal wall regional wall motion. Mild LVH. Status post bioprosthetic aortic valve peak/mean gradient 15/9 mmHg. Thickened mitral valve, mean gradient 4.
Echo 02/11/2023: GVH study, normal EF, normal function of tissue AVR
HPI: Patient is a 74-year-old man with a complex past medical history including complex CAD status post CABG and status post multivessel stenting including the left subclavian artery ostium, severe PAD status post axillobifemoral bypass 10/26/2024,
hypertension, and hyperlipidemia with intermittent presyncope and is found to have symptomatic pauses on Holter monitoring over 3 seconds. He is referred for dual-chamber pacemaker placement.
Plan:
-Elective admission 01/26/2025 for pacemaker implant secondary to presyncope with pauses and non-reversible symptomatic bradycardia due to third degree AV block on outpatient monitoring
-Status post dual-chamber Hernandez pacemaker implant 01/26/[address] Ramon
-Patient doing well on morning of 01/27/2025. Pacemaker incision site stable with with no significant hematoma/ecchymosis
-Chest x-ray 01/26/2025 post pacemaker implant with no acute cardiopulmonary abnormality or visualized pneumothorax. Intact pacemaker leads in expected right atrium and ventricle
-Stable postop hemoglobin 10.5 and unremarkable electrolytes with normal renal function.
-Post pacemaker EKG sinus rhythm
-Per review of telemetry on morning of 01/27/2025 patient remains in sinus rhythm with rare intermittent ventricular pacing. There are brief episodes of sinus tachycardia but overall heart rate well-controlled. Patient's outpatient dosing of
metoprolol has been resumed post pacemaker implant
-Wound care instructions and activity restrictions reviewed with patient
-Continue current preprocedural medical regimen without change
-Outpatient wound check arranged for 01/29/[address] Ramon's office
-Patient stable from cardiac standpoint for discharge to home.
Progress Note - Interior Surface Insulation Worker
Subjective
Date of Service: January 27, 2025
Patient seen and examined. Patient overall feels well without any concerning cardiac symptoms and has been able to ambulate around unit without difficulty. Pacemaker incision site clean dry intact without hematoma or infection. Patient eager to
go home
Objective
Labs:
01/27/25 04:14
01/27/25 04:14
Labs
Hgb 10.5 g/dL (13.0-18.0) L 01/27/25 04:14
Hct 35.4 % (39.0-52.0) L 01/27/25 04:14
Plt Count 234 10^3/uL (130-400) 01/27/25 04:14
Sodium 137 mmol/L (135-145) 01/27/25 04:14
Potassium 4.6 mmol/L (3.5-5.1) 01/27/25 04:14
BUN 13 mg/dl (9-20) 01/27/25 04:14
Creatinine 1.0 mg/dL (0.7-1.3) 01/27/25 04:14
Glucose 128 mg/dl (70-99) H 01/27/25 04:14
Vital Signs and I&O:
Vital Signs
Temp Pulse Resp BP Pulse Ox
98.1 F 89 20 147/69 98
01/27/25 08:04 01/27/25 08:23 01/27/25 08:04 01/27/25 08:23 01/27/25 08:04
Vital Signs
Temp Pulse Resp BP Pulse Ox
98.1 F 89 20 147/69 98
01/27/25 08:04 01/27/25 08:23 01/27/25 08:04 01/27/25 08:23 01/27/25 08:04
Intake & Output
01/25/25 01/26/25 01/27/25 01/28/25
06:59 06:59 06:59 06:59
Intake Total 480 / 480
Output Total 300 / 300
Balance 180 / 180
Physical Exam
Physical Exam
GEN: No distress, awake, Ox3, sitting in bed
HEENT: supple, anicteric, mmm
LUNGS: CTA, no wheezes/rales
CV: Reg, S1/S2, no murmur,, rub or gallop
Chest: Left upper anterior chest with pacemaker dressing clean dry intact without hematoma or ecchymosis
ABD: soft, BS+, NT/ND
EXT: No edema, clubbing or cyanosis
NEURO: Gross non-focal
SKIN: No rash, warm, pink, dry
--- NOTE | 2025-01-27 09:17 | PTCARENOTE ---
received patient this am laying in bed watching tv. patient wants to be D/C to home today. monitor shows NSR, VSS. LCW has blood noted on dsg., patient wanted new dressing. dsg. changed, incision is reddened, no drainage note now, area is tender to
touch. pacemaker rep in room.
--- NOTE | 2025-01-27 09:46 | PTCARENOTE ---
D/C instructions given to patient and , both verbalizes understanding. INT D/C'd, telemetry d/C'd, personal belongings packed and sent home with patient. D/C to home via wc accompanied by staff.
== END 2025-01-27 09:49 | disposition home or self-care (01) ==
LOC: CATH 11:44
PROVIDERS: Nurse Practitioner Adult Health; ATTENDING PHYSICIAN Internal Medicine Interventional Cardiology; FAMILY PHYSICIAN Family Medicine
DX: I44.2 Atrioventricular block, complete (principal); E11.51 Type 2 diabetes mellitus with diabetic peripheral angiopathy without gangrene; E78.5 Hyperlipidemia, unspecified; F10.10 Alcohol abuse, uncomplicated; I10 Essential (primary) hypertension; I25.2 Old myocardial infarction; I25.10 Atherosclerotic heart disease of native coronary artery without angina pectoris; I35.0 Nonrheumatic aortic (valve) stenosis; I49.1 Atrial premature depolarization; Z86.73 Personal history of transient ischemic attack (TIA), and cerebral infarction without residual deficits; I65.29 Occlusion and stenosis of unspecified carotid artery; I70.8 Atherosclerosis of other arteries; I77.1 Stricture of artery; K21.9 Gastro-esophageal reflux disease without esophagitis; K76.0 Fatty (change of) liver, not elsewhere classified
CPT/HCPCS: 33208; 71045; 80048; 82962; 83735; 85027; 87070; 93005; C1769; C1785; C1898